=== PATIENT | male | born 1960 | race Caucasian/White ===

== ENCOUNTER 2019-03-17 16:01 | Inpatient (IN) | payer OTHER ==
[~2019-03-17] VITALS: Ht 175.3 cm; Wt 107.0 kg
[~2019-03-17 16:01] MED LIST: ACET500C5 PO; AMLO5TAB4 PO; ATOR20TA38 PO; CALC30CA PO; DOCU-144 PO; DOCU-159 PO; FENO134C PO; FURO40TA4 PO; HYDR-3601 PO; LANT3I SC; LEVO500T48 PO; LOSA25TA2 GTB; METO-448 PO; MINO10TA16 PO; MINO2.5T16 PO; MTF1000T PO; NEPH PO; NOVO3I SC; OMEP20CA16 PO; SITA50TA2 PO
[2019-03-17] MEDS ORDERED: VANCOMYCIN 1 GM (PMX) 250 ML IVPB STA (17:16)
[2019-03-17] MEDS ORDERED: PIPER-TAZO 3.375 GM IV (PMX) 100 ML IVPB STA (17:16)
--- NOTE | 2019-03-17 19:34 | ERD ---
ER Documentation Chief Complaint Chief Complaint SEND BY PMD FOR ADMISSION, HAS RIGHT FOOT INFECTION HPI This is a very pleasant 59-year-old male with a history of hypertension and insulin-dependent diabetes mellitus. The patient indicates that roughly 1 week ago he developed a redness and ulcer on the right foot. He was seen 4 days ago the vascular surgeon Dr. Fisher. He was seen today for reevaluation and Dr. Sim's office and was sent to the emergency department to be admitted for further antibiotics as his wound ulcer had worsened and appeared more red swollen and tender to the patient. He has had no fevers or shaking no chills. He denies any chest pain. He has no shortness of breath at rest or exertion. ROS All systems reviewed and are negative except as per history of present illness. Medications Home Meds Reported Medications Multivit/Ca Carb/B Cmplx/Fa* (Christi-Sherman*) 1 Tab Tab, 1 TAB PO DAILY, TAB 03/17/19 Furosemide* (Furosemide*) 40 Mg Tablet, 40 MG PO DAILY, TAB 03/17/19 Atorvastatin Calcium* (Atorvastatin Calcium*) 20 Mg Tablet, 20 MG PO QHS, #30 TAB 03/17/19 Amlodipine Besylate* (Norvasc*) 5 Mg Tablet, 5 MG PO DAILY, TAB 03/17/19 Minoxidil* (Lonitin*) 10 Mg Tab, 10 MG PO DAILY, TAB 03/17/19 Docusate Sodium* (Colace*) 100 Mg Capsule, 200 MG PO DAILY, #30 CAP 03/17/19 Omeprazole* (Omeprazole*) 20 Mg Capsule.dr, 20 MG PO DAILY, #30 CAP 03/17/19 Sitagliptin* (Januvia*) 50 Mg Tablet, 50 MG PO DAILY, #30 TAB 03/17/19 Insulin Glargine* (Lantus*) 100 Unit/Ml Soln, 40 UNIT SC BID, #1 VIAL 03/17/19 Insulin Aspart* (Novolog Insulin Pen*) 100 Unit/Ml Soln, 0 SC .SLIDING SCALE AC, EA 03/17/19 Calcifediol (Rayaldee) 30 Mcg Cap.sa.24h, 30 MCG PO DAILY 03/17/19 Levofloxacin* (Levaquin*) 500 Mg Tablet, 500 MG PO DAILY, TAB FOR 10 DAYS, START DATE 03/14/19 03/17/19 Discontinued Reported Medications Minoxidil* (Lonitin*) 2.5 Mg Tab, 5 MG PO QPM, TAB 12/30/14 Docusate Sodium* (Docusate Sodium*) 100 Mg Capsule, 100 MG PO QAM, CAP 12/30/14 Fenofibrate, Micronized (Fenofibrate) 134 Mg Capsule, 134 MG PO DAILY, CAP 12/30/14 Omeprazole* (Omeprazole*) 20 Mg Capsule.dr, 20 MG PO DAILY, CAP 12/30/14 Metformin* (Glucophage*) 1,000 Mg Tablet, 1000 MG PO BID, TAB 12/30/14 Discontinued Scripts Insulin Glargine* (Lantus*) 100 Unit/Ml Soln, 20 UNIT SC QHS for 28 Days, VIAL Prov:KATH SILVA MD 01/18/15 Losartan Potassium* (Cozaar*) 25 Mg Tab, 25 MG GTB DAILY for 28 Days, BOTTLE Prov:KATH SILVA MD 01/18/15 Metoprolol Tartrate* (Lopressor*) 25 Mg Tab, 50 MG PO BID for 28 Days, TAB Prov:KATH SILVA MD 01/18/15 Insulin Aspart* (Novolog Insulin Pen*) 100 Unit/Ml Soln, 8 UNIT SC WITH MEALS for 28 Days, VIAL Prov:KATH SILVA MD 01/18/15 Atorvastatin Calcium* (Atorvastatin Calcium*) 20 Mg Tablet, 20 MG PO HS, #60 TAB Prov:VICTOR MANUEL ODONNELL MD 01/01/15 Allergies Allergies: Coded Allergies: No Known Allergies (Verified Allergy, Mild, 03/17/19) PMhx/Soc History of Surgery: Yes (exp. lap., colostomy) Anesthesia Reaction: No Hx Neurological Disorder: No Hx Respiratory Disorders: No Hx Cardiac Disorders: Yes (HTN) Hx Psychiatric Problems: No Hx Miscellaneous Medical Probl: Yes (DM, HTN, PAD acute RF, CKD, diab neuropathy, gangrene, diverticulitis) Hx Alcohol Use: No Hx Substance Use: No Hx Tobacco Use: No Smoking Status: Never smoker Physical Exam Vitals Vital Signs Date Temp Pulse Resp B/P (MAP) Pulse Ox O2 O2 Flow FiO2 Time Delivery Rate 03/17/19 105 23 165/74 99 Room Air 19:00 (104) 03/17/19 99.8 100 18 151/79 99 16:07 (103) Physical Exam Constitutional:Well-developed. Well-nourished. HEENT:Normocephalic. Atraumatic.Pupils were equal round reactive to light. Moist mucous membranes. Respiratory: Not using accessory muscles of respiration.Lungs were clear to auscultation bilaterally. No rhonchi. No rales. No wheezing. Cardiovascular: Regular rate regular rhythm.No murmurs. No rubs were appreciated.S1, S2 normal. Dorsalis pedis and posterior tibialis were diminished on the right compared to the left. GI: Abdomen was soft. Nontender. Non Distended. No pulsatile abdominal masses or bruits. No rebound. No guarding. Bowel sounds were present and normal. Muscle skeletal: Full range of motion of both the upper and lower extremities bilaterally.Normal muscle tone.No assymetrical calf tenderness or swelling. Skin: Erythremia warmth and tenderness extending over the dorsal aspect of the right foot with central area of stage I ulcer roughly 1 cm in diameter. No fluctuance or induration. No subcutaneous emphysema. Pain not out of proportion to physical exam findings. NEURO: Patient was alert, awake, orientated x3.No facial droop. Gait observed and normal with no ataxia.Speech had regular rate and rhythm. No focal neurologi angel deficits. Result Diagram: 03/17/19174803/17/191748 Results 24 hrs Laboratory Tests Test 03/17/19 17:49 White Blood Count 9.5 10^3/ul Red Blood Count 3.48 10^6/ul Hemoglobin 10.6 g/dl Hematocrit 32.1 % Mean Corpuscular Volume 92.2 fl Mean Corpuscular Hemoglobin 30.5 pg Mean Corpuscular Hemoglobin Concent 33.0 g/dl Red Cell Distribution Width 14.5 % Platelet Count 259 10^3/UL Mean Platelet Volume 9.8 fl Immature Granulocytes % 2.400 % Neutrophils % 67.6 % Lymphocytes % 12.7 % Monocytes % 15.1 % Eosinophils % 1.9 % Basophils % 0.3 % Nucleated Red Blood Cells % 0.0 /100WBC Immature Granulocytes # 0.230 10^3/ul Neutrophils # 6.4 10^3/ul Lymphocytes # 1.2 10^3/ul Monocytes # 1.4 10^3/ul Eosinophils # 0.2 10^3/ul Basophils # 0.0 10^3/ul Nucleated Red Blood Cells # 0.0 10^3/ul Prothrombin Time 12.7 Sec Prothrombin Time Ratio 1.0 INR International Normalized Ratio 0.94 Activated Partial Thromboplast Time 30.9 Sec Sodium Level 138 mmol/L Potassium Level 4.9 mmol/L Chloride Level 99 mmol/L Carbon Dioxide Level 22 mmol/L Anion Gap 17 Blood Urea Nitrogen 58 mg/dl Creatinine 7.48 mg/dl Est Glomerular Filtrat Rate mL/min 7 mL/min Glucose Level 229 mg/dl Calcium Level 9.8 mg/dl Total Bilirubin 0.2 mg/dl Direct Bilirubin 0.00 mg/dl Indirect Bilirubin 0.2 mg/dl Aspartate Amino Transf (AST/SGOT) 37 IU/L Alanine Aminotransferase (ALT/SGPT) 57 IU/L Alkaline Phosphatase 127 IU/L Total Protein 8.6 g/dl Albumin 4.6 g/dl Globulin 4.00 g/dl Albumin/Globulin Ratio 1.15 Current Medications Medications Dose Sig/Luis F Start Time Status Last (Trade) Ordered Route PRN Stop Time Admin Dose Reason Admin Vancomycin 250 ml @ ONCE STAT 03/17/19 DC HCl 125 mls/hr IVPB 17:16 03/17/19 19:15 Piperacillin 100 ml @ ONCE STAT 03/17/19 DC 03/17/19 Sod/ 200 mls/hr IVPB 17:16 03/17/19 18:14 Tazobactam 17:45 Sod Procedures/MDM The patient presented to the emergency department with a spreading erythematous superficial infection of the skin and subcutaneous tissues. My differential diagnosis included but was not limited to necrotizing fasciitis, lymphangitis, thrombophlebitis, deep vein thrombosis, allergic reaction, neoplasm, gout or abscess. Predisposing factors of the progressive spread of erythema, warmth, pain and tenderness was considered such as lymphedema, tinea pedis, open wounds, prior trauma or surgery, pre-existing skin lesion (furuncle), retained foreign body, injection drug use or vascular or immune compromise. The patient was placed on antibiotics to cover Staphylococcus aureus, including resistant strains such as community-acquired methicillin-resistant S. aureus. The patient was given intravenous cefepime and vancomycin. There is no physical exam findings to suggest necrotizing fasciitis, compartment syndrome my clinical suspicion was low for ostium mellitus. Radiographic imaging was obtained of the right foot. There is no secondary changes at this time to suggest osteo- mellitus. 12 Lead EKG tracing ordered and reviewed by myself showed: Normal sinus rhythm of 94 bpm and no arrhythmia. AK interval normal. QRS duration normal. No ST segment elevation No ST segment depression. No changes consistent with acute ischemia. The patient had acute on chronic renal failure. His BUN was 58 and creatinine was 7.48. The patient was hyperglycemic without ketosis. He received IV fluids. He was given intravenous morphine and Zofran for analgesia control. He will be admitted under the care of Dr. Silva. I do feel the patient was able to go to the medical surgical floor. Departure Diagnosis: Primary Impression: Diabetic foot ulcer Diabetic foot ulcer location: midfoot Diabetes mellitus type: other specified (including ALVARADO) Laterality: right Non-pressure ulcer stage: limited to breakdown of skin Qualified Codes: E13.621 - Other specified diabetes mellitus with foot ulcer; L97.411 - Non-pressure chronic ulcer of right heel and midfoot limited to breakdown of skin Additional Impressions: Renal failure (ARF), acute on chronic Acute renal failure type: unspecified Chronic kidney disease stage: unspecified stage Qualified Codes: N17.9 - Acute kidney failure, unspecified; N18.9 - Chronic kidney disease, unspecified Hyperglycemia without ketosis Condition: Serious JOSÉ MIGUEL NARVAEZ MD Mar 17, 2019 19:34
[2019-03-17] MEDS ORDERED: ACETAMINOPHEN 325 MG TAB PO PRN (20:00)
[2019-03-17] MEDS ORDERED: ONDANSETRON 4 MG INJ IV PRN (20:00)
[2019-03-17 23:50] VITALS: BP 143/63; PULSE 100; RESP 18
[2019-03-18] VITALS (14 sets, daily range): BP systolic 110–147; BP diastolic 52–66; PULSE 93–108; RESP 16–18; Ht 175.3 cm; Wt 107.0 kg
[2019-03-18] MEDS ORDERED: ACETAMINOPHEN 325 MG TAB PO PRN (00:30)
[2019-03-18] MEDS: ZOLPIDEM 5 MG TAB PO PRN (01:17)
[2019-03-18] MEDS: CEFTRIAXONE 1 GM/50 ML (PMX) 50 ML IVPB SCH (01:17)
[2019-03-18] MEDS ORDERED: ACCU-CHEK XX SCH (02:00)
[2019-03-18] MEDS: INSULIN GLARGINE [LANTus] (100 UNITS/ML) SYG SC SCH ×2 (08:05→20:30)
[2019-03-18] MEDS: INSULIN ASPART [NOVOLOG] 3 ML PEN SC SCH ×5 (08:05→20:31)
[2019-03-18] MEDS: MINOXIDIL 10 MG TAB PO SCH (08:48)
[2019-03-18] MEDS: MULTIVIT/CA CARB/B CMPLX/FA TAB PO SCH (08:49)
[2019-03-18] MEDS: AMLODIPINE 5 MG TAB PO SCH (08:49)
[2019-03-18] MEDS: FUROSEMIDE 40 MG TAB PO SCH (08:49)
[2019-03-18] MEDS: DOCUSATE SODIUM 100 MG CAP PO SCH (08:50)
[2019-03-18] MEDS: TIMOLOL 0.5% 5 ML OPH BOTH EYES SCH ×2 (08:50→20:28)
[2019-03-18] MEDS ORDERED: SPECIAL NON-STANDARD MEDICATION BOTH EYES SCH (09:00)
[2019-03-18] MEDS ORDERED: ENOXAPARIN 40 MG/0.4 ML SYG SC SCH (09:00)
[2019-03-18] MEDS ORDERED: GLUCAGON 1 MG INJ IM PRN (11:30)
[2019-03-18] MEDS ORDERED: DEXTROSE 50% 50 ML SYRINGE IV PRN ×2 (11:30)
[2019-03-18] MEDS ORDERED: GLUCOSE GEL 15 GRAM TUBE PO PRN ×2 (11:30)
[2019-03-18] MEDS ORDERED: GLUCOSE GEL 15 GRAM TUBE BUCCAL PRN (11:30)
--- NOTE | 2019-03-18 12:43 | PN ---
Date/Time of Note Date/Time of Note DATE: 03/18/19 TIME: 12:41 Assessment/Plan Lines/Catheters IV Catheter Type (from Nrsg): Saline Lock Assessment/Plan Assessment/Plan R foot cellulitis, small wound improving with antibiotics I asked Dr. Ha to see him for podiatric evaluation Subjective 24 Hr Interval Summary No c/o. R foot pain has mostly resolved. Exam/Review of Systems Vital Signs Vitals Vital Signs Date Temp Pulse Resp B/P (MAP) Pulse Ox O2 O2 Flow FiO2 Time Delivery Rate 03/18/19 98.3 104 18 120/56 93 Room Air 07:15 (77) Intake and Output 03/17/19 03/17/19 03/18/19 1515:00 23:00 07:00 IntakeIntake Total 290 ml OutputOutput Total 300 ml BalanceBalance -10 ml Exam Free Text/Dictation R dorsal foot erythema is less red, no longer blanching, non tender, no drainage, dry eschar Results Result Diagram: 03/18/19 0523 03/18/19 0523 DAGOBERTO AGUILAR MD Mar 18, 2019 12:43
--- NOTE | 2019-03-18 13:57 | HP ---
DRISS CASTELLANOS NP 03/18/19 1357: Date/Time of Note Date/Time of Note DATE: 03/18/19 TIME: 13:57 Assessment/Plan VTE Prophylaxis Pharmacological prophylaxis: LMWH Lines/Catheters IV Catheter Type (from Nrs): Saline Lock Assessment/Plan Hospital Course 1. right foot cellulitis with necrotic wound, pt has redness and edema only for 5 days. Suspected PAD. 2. Hypertension, 3. Obesity, 4. Diabetes mellitus type II , BS is uncontrolled 5. ESRD on HD services, MWF 6. Anemia chronic disease 7. Hyperkalemia 8. S/p abd. laparotomy,hx of diverticulosis 9. s/p left foot 3 toe amputation, 10. s.p bilateral lenses replacement, 11. s/p left arm AV fistula creation Assessment/Plan -wound care -insulin aspart with meals 5 units -podiatry -Dr Fisher vascular surgeon -DVT proph lovenox -GI proph protonix -phos level -HD today -hypoglycemic control -start Tradjenta -ID consult Result Diagram: 03/18/19 0523 03/18/19 0523 Results 24hrs Laboratory Tests Test 03/17/19 17:49 03/17/19 19:55 03/17/19 23:58 03/18/19 05:20 White Blood Count 9.5 Red Blood Count 3.48 L Hemoglobin 10.6 L Hematocrit 32.1 L Mean Corpuscular Volume 92.2 Mean Corpuscular 30.5 Hemoglobin Mean Corpuscular 33.0 Hemoglobin Concent Red Cell Distribution 14.5 Width Platelet Count 259 Mean Platelet Volume 9.8 Immature Granulocytes % 2.400 H Neutrophils % 67.6 Lymphocytes % 12.7 L Monocytes % 15.1 H Eosinophils % 1.9 Basophils % 0.3 Nucleated Red Blood 0.0 Cells % Immature Granulocytes # 0.230 H Neutrophils # 6.4 Lymphocytes # 1.2 Monocytes # 1.4 H Eosinophils # 0.2 Basophils # 0.0 Nucleated Red Blood 0.0 Cells # Prothrombin Time 12.7 Prothrombin Time Ratio 1.0 INR International 0.94 Normalized Ratio Activated 30.9 Partial Thromboplast Time Sodium Level 138 Potassium Level 4.9 Chloride Level 99 Carbon Dioxide Level 22 Anion Gap 17 H Blood Urea Nitrogen 58 H Creatinine 7.48 H Est Glomerular Filtrat 7 L Rate mL/min Glucose Level 229 H Calcium Level 9.8 Total Bilirubin 0.2 Direct Bilirubin 0.00 Indirect Bilirubin 0.2 Aspartate Amino 37 Transf (AST/SGOT) Alanine 57 Aminotransferase (ALT/SG PT) Alkaline Phosphatase 127 H Total Protein 8.6 H Albumin 4.6 Globulin 4.00 H Albumin/Globulin Ratio 1.15 Urine Color YELLOW Urine Clarity CLOUDY A Urine pH 5.0 Urine Specific Simla 1.016 Urine Ketones NEGATIVE Urine Nitrite NEGATIVE Urine Bilirubin NEGATIVE Urine Urobilinogen NEGATIVE Urine Leukocyte Esterase NEGATIVE Urine Microscopic RBC 15 H Urine Microscopic WBC 6 H Urine Squamous FEW Epithelial Cells Urine Amorphous Crystals MODERATE Urine Bacteria FEW A Urine Hemoglobin 1+ H Urine Glucose 1+ H Urine Total Protein 2+ H Bedside Glucose 154 Hepatitis B Surface NEGATIVE Antigen Test 03/18/19 05:23 03/18/19 08:00 03/18/19 12:10 White Blood Count 8.3 Red Blood Count 3.13 L Hemoglobin 9.7 L Hematocrit 29.2 L Mean Corpuscular Volume 93.3 Mean Corpuscular 31.0 Hemoglobin Mean Corpuscular 33.2 Hemoglobin Concent Red Cell Distribution 14.4 Width Platelet Count 226 Mean Platelet Volume 9.4 Immature Granulocytes % 2.200 H Neutrophils % 83.7 H Lymphocytes % 3.6 L Monocytes % 9.0 Eosinophils % 1.3 Basophils % 0.2 Nucleated Red Blood 0.0 Cells % Immature Granulocytes # 0.180 H Neutrophils # 6.9 Lymphocytes # 0.3 L Monocytes # 0.7 Eosinophils # 0.1 Basophils # 0.0 Nucleated Red Blood 0.0 Cells # Sodium Level 139 Potassium Level 5.4 H Chloride Level 101 Carbon Dioxide Level 22 Anion Gap 16 H Blood Urea Nitrogen 67 H Creatinine 8.20 H Est Glomerular Filtrat 7 L Rate mL/min Glucose Level 281 H Calcium Level 9.0 Bedside Glucose 274 H 218 HPI/ROS Admit Date/Time Admit Date/Time Mar 17, 2019 at 19:35 Hx of Present Illness This is 59-year-old male with a history of hypertension, obesity, diabetes mellitus type II and fresh with HD services three times per week was sent from [facility] office for the evaluation of the right foot edema. The patient indicates that roughly 1 week ago he developed a redness and ulcer on the right foot. He was seen by vascular surgeon Dr. Fisher. denied fevers, shaking no chills. He denies any chest pain. He has no shortness of breath at rest or exertion. ROS Constitutional: No fever, cough or chills. EYE: cataract surgery CARDIOVASCULAR: No chest pain. No tachycardia. No Palpitation. RESPIRATORY: No breathing problems. No COPD or disease of respiration. GASTROINTESTINAL: No Nausea. No Vomiting. No constipation.has diverticulosis Endocrine: has DM MUSCULO-SKELETAL: previous left foot surgeries, feet are called NEUROLOGICAL: Alert oriented in person, place, time and situation. No Headache, Confusion. No Seizures. No problem with balance. PMH/Family/Social Past Medical History Medications Current Medications Diagnostic Test (Pha) (Accu-Chek) XX ; Start 03/18/19 at 02:00 Insulin Aspart (Novolog Insulin Pen) NOVOLOG *MODERATE* ALGORITHM WITH MEALS BEDTIME SC Last administered on 03/18/19 12:19; Admin Dose 4 UNIT; Start 03/18/19 at 08:00 Ceftriaxone Sodium 50 ml @ 100 mls/hr Q24H IVPB Last administered on 03/18/19 01:17; Admin Dose 100 MLS/HR; Start 03/18/19 at 00:30 Acetaminophen (Tylenol Tab) 650 mg Q6H PRN PO MILD PAIN(1-3)OR ELEVATED TEMP; Start 03/18/19 at 00:30 Zolpidem Tartrate (Ambien) 5 mg HS PRN PO INSOMNIA Last administered on 03/18/19 01:17; Admin Dose 5 MG; Start 03/18/19 at 00:30 Enoxaparin Sodium (Lovenox) 40 mg DAILY SC Last administered on 03/18/19 08:53; Admin Dose 40 MG; Start 03/18/19 at 09:00 Timolol Maleate (Timoptic 0.5%) 1 drop BID BOTH EYES Last administered on 03/18/19 08:50; Admin Dose 1 DROP; Start 03/18/19 at 09:00 Amlodipine Besylate (Norvasc) 5 mg DAILY PO Last administered on 03/18/19 08:49; Admin Dose 5 MG; Start 03/18/19 at 09:00 Atorvastatin Calcium (Lipitor) 20 mg QHS PO ; Start 03/18/19 at 21:00 Docusate Sodium (Colace) 200 mg DAILY PO Last administered on 03/18/19 08:50; Admin Dose 200 MG; Start 03/18/19 at 09:00 Furosemide (Lasix) 40 mg DAILY PO Last administered on 03/18/19at 08:49; Admin Dose 40 MG; Start 03/18/19 at 09:00 Insulin Glargine (Lantus) 40 units BID SC Last administered on 03/18/19at 08:05; Admin Dose 40 UNITS; Start 03/18/19 at 09:00 Minoxidil (Loniten) 10 mg DAILY PO Last administered on 03/18/19at 08:48; Admin Dose 10 MG; Start 03/18/19 at 09:00 Multivit/Ca Carb/ B Cmplx/FA/Prenat (Christi-Sherman) 1 tab DAILY PO Last administered on 03/18/19at 08:49; Admin Dose 1 TAB; Start 03/18/19 at 09:00 Non-Formulary Medication 1 ea BID BOTH EYES ; Start 03/18/19 at 09:00; Status UNV Collagenase (Santyl) 1 applic DAILY TOP ; Start 03/18/19 at 11:30 Miscellaneous Information 1 ea NOTE XX ; Start 03/18/19 at 11:30 Glucose (Glutose) 15 gm Q15M PRN PO DECREASED GLUCOSE; Start 03/18/19 at 11:30 Glucose (Glutose) 22.5 gm Q15M PRN PO DECREASED GLUCOSE; Start 03/18/19 at 11:30 Dextrose (D50w Syringe) 25 ml Q15M PRN IV DECREASED GLUCOSE; Start 03/18/19 at 11:30 Dextrose (D50w Syringe) 50 ml Q15M PRN IV DECREASED GLUCOSE; Start 03/18/19 at 11:30 Glucagon (Glucagen) 1 mg Q15M PRN IM DECREASED GLUCOSE; Start 03/18/19 at 11:30 Glucose (Glutose) 15 gm Q15M PRN BUCCAL DECREASED GLUCOSE; Start 03/18/19 at 11:30 Coded Allergies: No Known Allergies (Verified Allergy, Mild, 03/17/19) Past Surgical History Past Surgical Hx: other (abd. laparotomy, s/p left foot 3 toe amputation, s.p bilateral lenses replacement, s/p left arm AV fistula) Social History Smoking Status: Never smoker Exam/Review of Systems Vital Signs Vitals Vital Signs Date Temp Pulse Resp B/P (MAP) Pulse Ox O2 O2 Flow FiO2 Time Delivery Rate 03/18/19 98.3 104 18 120/56 93 Room Air 07:15 (77) Intake and Output 03/17/19 03/17/19 03/18/19 1515:00 23:00 07:00 IntakeIntake Total 290 ml OutputOutput Total 300 ml BalanceBalance -10 ml Exam Exam No acute distress, no events. Eyes: anicteric, EOM's intact, no pallor, seen lens translucency bilateral Nose: no rhinorrhea Neck: supple, no thyromegaly, no carotid bruits Lungs: clear bilaterally, decreased. CVS: regular rate and rhythm, no murmurs Abdomen: soft, bowel sounds present, no hepatosplenomegally, no masses, no rebound or guarding.obese Rectal: differed. External genitalia: no lesions. Extremities: no edema, DP pulses are not palpable bilaterally, right foot re dness and necrotic tissue, deformity 3 toe, left foot s/p amp, some dry blood Neuro: alert and oriented x 3 Gait: normal Motor strength: 5+/5+ Sensory exam: normal Deep tendon reflexes: normal, Babisky reflexes are absent bilaterally Skin: necrotic changes right foot DEONNA TILLMAN MD 03/18/19 1527: Assessment/Plan Assessment/Plan Assessment/Plan MELODY AND EXAMINED WITH ADJUNCT BUSINESS IN[employer] ESRD HD TODAY PODIATRY CONSULT IV ABX MRI Result Diagram: 03/18/19 0523 03/18/19 0523 PMH/Family/Social Past Medical History Coded Allergies: No Known Allergies (Verified Allergy, Mild, 03/17/19) DRISS CASTELLANOS NP Mar 18, 2019 13:57 DEONNA TILLMAN MD Mar 18, 2019 15:27
[2019-03-18] MEDS ORDERED: VANCOMYCIN IV PER PHARMACY XX SCH (15:30)
[2019-03-18] MEDS ORDERED: VANCOMYCIN 1 GM 250 ML IVPB SCH (16:00)
--- NOTE | 2019-03-18 16:20 | CONS ---
DATE OF ADMISSION: 03/17/2019 DATE OF CONSULTATION: 03/18/2019 CHIEF COMPLAINT: Right foot infection. HISTORY OF PRESENT ILLNESS: This is a 59-year-old gentleman with approximately 2 weeks of swelling. He states possibly he had a bug bite. He developed a necrotic pus with surrounding cellulitis. He was admitted for further evaluation and had initial cultures positive for Staph aureus. The patient is currently awaiting dialysis. PAST MEDICAL HISTORY: Includes: 1. Diabetes type 2 with peripheral neuropathy. 2. Diabetes with nephropathy and end-stage renal disease on hemodialysis. 3. Hypertension. 4. Peripheral arterial disease. 5. History of gangrene. 6. Diverticulitis. PAST SURGICAL HISTORY: Multiple bilateral foot surgeries SOCIAL HISTORY: Denies any tobacco, alcohol use. ALLERGIES: NONE. PHYSICAL EXAMINATION: VITAL SIGNS: Temperature is 98.3, pulse is 104, respiratory rate 18, blood pressure is 120/56, pulse ox is 93 on room air. GENERAL: The patient is alert, oriented, no acute distress, regular respiration. EXTREMITIES: The patient with a right foot dorsal aspect cellulitis. There is a necrotic patch at the lateral aspect of the 1st metatarsal base. Eschar appears dry fluctuance, 1+ pulse. The DP, popliteal, 2+ femoral pulse swelling present in dorsal right foot. No signs of pressure ulceration. LABORATORIES: WBC 8.3, hemoglobin 9.7, hematocrit 29.2, platelets 226. Sodium 139, potassium 5.4, chloride 101, CO2 of 22, BUN 67, creatinine 8.2. DIAGNOSTIC DATA: Right foot x-rays with recent changes at the 5th proximal interphalangeal joint soft tissue swelling, dorsal right foot swelling, calcaneal bone spurs, postsurgical changes to 2nd proximal interphalangeal joint. ASSESSMENT: 1. Right foot dry gangrene. 2. Abscess. 3. Cellulitis, right foot. 4. Diabetes with peripheral neuropathy. 5. Chronic kidney disease on hemodialysis. PLAN: Initial cultures are pending. Prior outpatient revealed Staph aureus. The patient is currently on ceftriaxone. I recommend a surgical incision and drainage. We will schedule a mutual agreeable time tentatively tomorrow. The patient will be kept n.p.o.. I discussed the planned procedure. All questions were answered. The patient is currently scheduled for dialysis today. Dictated By: TONY MORENO/NIMA Conf#: [id number] DID#: [id number] CC: KATH SILVA MD;*EndCC* MTDD
[2019-03-18] MEDS: PANTOPRAZOLE (EC) 40 MG TAB PO SCH (16:34)
[2019-03-18] MEDS: COLLAGENASE 5 GM (UD JAR) TOP SCH (17:30)
[2019-03-18] MEDS: LINAGLIPTIN 5 MG TABLET PO SCH (17:34)
--- NOTE | 2019-03-18 20:04 | CONS ---
DATE OF ADMISSION: 03/17/2019 DATE OF CONSULTATION: 03/18/2019 INFECTIOUS DISEASE CONSULTATION REASON FOR CONSULTATION: Antibiotic management. HISTORY OF PRESENT ILLNESS: Sanjay Novak is a pleasant 59-year-old male who is admitted on 2018 with a diabetic foot ulcer and is being seen for antibiotic management. His past problems inclu de hypertension, insulin-dependent diabetes mellitus. About 1 week ago, he developed redness and ulc er on the right foot. He was seen 4 days prior to admission by Dr. Fisher, vascular surgeon. The pat ient was then sent into the emergency room on further evaluation by Dr. Vaz for antibiotic therapy h is ulcer had worsened and become more swollen and red and tender. He denies chest pain or shortness of breath at rest or exertion. PAST MEDICAL HISTORY: Essentially as outlined. PAST SURGICAL HISTORY: Had exploratory laparotomy and colostomy in the past. As noted, he has diabe suleiman, hypertension, peripheral artery disease, acute renal failure, chronic renal disease. The patien t is on dialysis Thursday, Thursday and Thursday, has an AV fistula in his left arm. He has diabetic ne uropathy and diverticulitis. PHYSICAL EXAMINATION: GENERAL: He is disheveled. VITAL SIGNS: T-max is 99.8. SKIN: He has erythema, warmth and tenderness extending over the dorsal aspect of the right foot with a central area of eschar and a stage I ulcer about 1 cm in diameter without fluctuance or induration . No skin, subcutaneous emphysema. Pain not out of proportion. HEENT: Within normal limits. NECK: Supple. LYMPH NODES: None palpable. CHEST: Decreased breath sounds at the bases. HEART: Without murmur or gallop. ABDOMEN: Soft, nontender, without organosplenomegaly or masses. EXTREMITIES: Without cyanosis, clubbing, or edema. RECTAL AND GENITAL: Deferred. NEUROLOGIC: No focal neurological abnormality. LABORATORY DATA: White count is 9.5, H and H of 10.6 and 32.1, platelet count 259,000. BUN and crea tinine 58/7.48 and glucose of 229. The patient has 68% neutrophils. IMPRESSION AND PLAN: Patient was started on vancomycin and Zosyn. The patient was seen by Dr. Adan marr in podiatric consultation. He noted right foot dry gangrene, abscess, cellulitis right foot, necr otic patch of the lateral aspect of the first metatarsal base. Eschar feels dry. No fluctuance. 2+ femoral pulse. Swelling present in the dorsal right foot. Cultures are pending. Prior outpatient cultures revealed Staphylococcus aureus. He recommended surgical incision and drainage, possibly for tomorrow. It is planned for tomorrow. He has had dialysis today. He is on vancomycin, which will last 3 or 4 days and ceftriaxone. We will continue him on current therapy. I will dictate my findin gs to the hospitalist. Dictated By: SAMANTHA SCOTT MD, JD/NIMA Conf#: [id number] DID#: [id number]
[2019-03-18] MEDS: ATORVASTATIN 20 MG TAB PO SCH (20:28)
[2019-03-19] VITALS (23 sets, daily range): BP systolic 120–147; BP diastolic 44–66; PULSE 88–99; RESP 16–19
[2019-03-19] MEDS: CEFTRIAXONE 1 GM/50 ML (PMX) 50 ML IVPB SCH (02:00)
[2019-03-19] MEDS: INSULIN ASPART [NOVOLOG] 3 ML PEN SC SCH ×6 (02:13→17:36)
[2019-03-19] MEDS: PANTOPRAZOLE (EC) 40 MG TAB PO SCH (06:00)
--- NOTE | 2019-03-19 07:25 | HPN ---
Date/Time of Note Date/Time of Note DATE: 03/19/19 TIME: 07:25 Interval H&P Admission Note Pt. seen H&P reviewed: No system changes TONY CARMONA DPM Mar 19, 2019 07:25
--- NOTE | 2019-03-19 07:26 | PREAC ---
Date/Time of Note Date/Time of Note DATE: 03/19/19 TIME: 07:24 Anesthesia Eval and Record Evaluation Time Pre-Procedure Interview DATE: 03/19/19 TIME: 07:24 Age 59 Sex male NPO: 8 hrs Preoperative diagnosis right foot cellulitis, necrosis Planned procedure right foot incision and drainage Past Medical History Past Medical History: Includes Cardio: HTN, Dyslipidemia Endo: Diabetes Renal: ESRD on dialysis Heme: Anemia Surgery & Anesthesia Issues No known issue Meds Anticoagulation: No Beta Tanya within 24 hr: No Reason Beta Tanya not given: Pt. not on B-Tanya Reported Medications Multivit/Ca Carb/B Cmplx/Fa* (Christi-Sherman*) 1 Tab Tab, 1 TAB PO DAILY, TAB 03/17/19 Furosemide* (Furosemide*) 40 Mg Tablet, 40 MG PO DAILY, TAB 03/17/19 Atorvastatin Calcium* (Atorvastatin Calcium*) 20 Mg Tablet, 20 MG PO QHS, #30 TAB 03/17/19 Amlodipine Besylate* (Norvasc*) 5 Mg Tablet, 5 MG PO DAILY, TAB 03/17/19 Minoxidil* (Lonitin*) 10 Mg Tab, 10 MG PO DAILY, TAB 03/17/19 Docusate Sodium* (Colace*) 100 Mg Capsule, 200 MG PO DAILY, #30 CAP 03/17/19 Omeprazole* (Omeprazole*) 20 Mg Capsule.dr, 20 MG PO DAILY, #30 CAP 03/17/19 Sitagliptin* (Januvia*) 50 Mg Tablet, 50 MG PO DAILY, #30 TAB 03/17/19 Insulin Glargine* (Lantus*) 100 Unit/Ml Soln, 40 UNIT SC BID, #1 VIAL 03/17/19 Insulin Aspart* (Novolog Insulin Pen*) 100 Unit/Ml Soln, 0 SC .SLIDING SCALE AC, EA 03/17/19 Calcifediol (Rayaldee) 30 Mcg Cap.sa.24h, 30 MCG PO DAILY 03/17/19 Levofloxacin* (Levaquin*) 500 Mg Tablet, 500 MG PO DAILY, TAB FOR 10 DAYS, START DATE 03/14/19 03/17/19 Discontinued Reported Medications Minoxidil* (Lonitin*) 2.5 Mg Tab, 5 MG PO QPM, TAB 12/30/14 Docusate Sodium* (Docusate Sodium*) 100 Mg Capsule, 100 MG PO QAM, CAP 12/30/14 Fenofibrate, Micronized (Fenofibrate) 134 Mg Capsule, 134 MG PO DAILY, CAP 12/30/14 Omeprazole* (Omeprazole*) 20 Mg Capsule.dr, 20 MG PO DAILY, CAP 12/30/14 Metformin* (Glucophage*) 1,000 Mg Tablet, 1000 MG PO BID, TAB 12/30/14 Discontinued Scripts Insulin Glargine* (Lantus*) 100 Unit/Ml Soln, 20 UNIT SC QHS for 28 Days, VIAL Prov:KATH SILVA MD 01/18/15 Losartan Potassium* (Cozaar*) 25 Mg Tab, 25 MG GTB DAILY for 28 Days, BOTTLE Prov:KATH SILVA MD 01/18/15 Metoprolol Tartrate* (Lopressor*) 25 Mg Tab, 50 MG PO BID for 28 Days, TAB Prov:KATH SILVA MD 01/18/15 Insulin Aspart* (Novolog Insulin Pen*) 100 Unit/Ml Soln, 8 UNIT SC WITH MEALS for 28 Days, VIAL Prov:KATH SILVA MD 01/18/15 Atorvastatin Calcium* (Atorvastatin Calcium*) 20 Mg Tablet, 20 MG PO HS, #60 TAB Prov:VICTOR MANUEL ODONNELL MD 01/01/15 Current Medications Diagnostic Test (Pha) (Accu-Chek) XX ; Start 03/18/19 at 02:00; Status Hold Insulin Aspart (Novolog Insulin Pen) NOVOLOG *MODERATE* ALGORITHM WITH MEALS BEDTIME SC Last administered on 03/18/19at 20:31; Admin Dose 3 UNIT; Start 03/18/19 at 08:00; Status Hold Ceftriaxone Sodium 50 ml @ 100 mls/hr Q24H IVPB Last administered on 03/19/19at 02:00; Admin Dose 100 MLS/HR; Start 03/18/19 at 00:30 Acetaminophen (Tylenol Tab) 650 mg Q6H PRN PO MILD PAIN(1-3)OR ELEVATED TEMP; Start 03/18/19 at 00:30 Zolpidem Tartrate (Ambien) 5 mg HS PRN PO INSOMNIA Last administered on 03/18/19at 01:17; Admin Dose 5 MG; Start 03/18/19 at 00:30 Timolol Maleate (Timoptic 0.5%) 1 drop BID BOTH EYES Last administered on 03/18/19 20:28; Admin Dose 1 DROP; Start 03/18/19 at 09:00 Amlodipine Besylate (Norvasc) 5 mg DAILY PO Last administered on 03/18/19 08:49; Admin Dose 5 MG; Start 03/18/19 at 09:00 Atorvastatin Calcium (Lipitor) 20 mg QHS PO Last administered on 03/18/19 20:28; Admin Dose 20 MG; Start 03/18/19 at 21:00 Docusate Sodium (Colace) 200 mg DAILY PO Last administered on 03/18/19 08:50; Admin Dose 200 MG; Start 03/18/19 at 09:00 Furosemide (Lasix) 40 mg DAILY PO Last administered on 03/18/19 08:49; Admin Dose 40 MG; Start 03/18/19 at 09:00 Insulin Glargine (Lantus) 40 units BID SC Last administered on 03/18/19 20:30; Admin Dose 40 UNITS; Start 03/18/19 at 09:00 Minoxidil (Loniten) 10 mg DAILY PO Last administered on 03/18/19 08:48; Admin Dose 10 MG; Start 03/18/19 at 09:00 Multivit/Ca Carb/ B Cmplx/FA/Prenat (Christi-Sherman) 1 tab DAILY PO Last administered on 03/18/19 08:49; Admin Dose 1 TAB; Start 03/18/19 at 09:00 Non-Formulary Medication 1 ea BID BOTH EYES ; Start 03/18/19 at 09:00; Status UNV Collagenase (Santyl) 1 applic DAILY TOP Last administered on 03/18/19at 17:30; Admin Dose 1 APPLIC; Start 03/18/19 at 11:30 Miscellaneous Information 1 ea NOTE XX ; Start 03/18/19 at 11:30 Glucose (Glutose) 15 gm Q15M PRN PO DECREASED GLUCOSE; Start 03/18/19 at 11:30 Glucose (Glutose) 22.5 gm Q15M PRN PO DECREASED GLUCOSE; Start 03/18/19 at 11:30 Dextrose (D50w Syringe) 25 ml Q15M PRN IV DECREASED GLUCOSE; Start 03/18/19 at 11:30 Dextrose (D50w Syringe) 50 ml Q15M PRN IV DECREASED GLUCOSE; Start 03/18/19 at 11:30 Glucagon (Glucagen) 1 mg Q15M PRN IM DECREASED GLUCOSE; Start 03/18/19 at 11:30 Glucose (Glutose) 15 gm Q15M PRN BUCCAL DECREASED GLUCOSE; Start 03/18/19 at 11:30 Pantoprazole (Protonix Tab) 40 mg DAILY@06 PO Last administered on 03/18/19at 16:34; Admin Dose 40 MG; Start 03/18/19 at 16:00 Linagliptin (Tradjenta) 5 mg DAILY PO Last administered on 03/18/19at 17:34; Admin Dose 5 MG; Start 03/18/19 at 15:00 Insulin Aspart (Novolog Insulin Pen) 5 unit WITH MEALS SC Last administered on 03/18/19at 17:38; Admin Dose 5 UNIT; Start 03/18/19 at 17:35 Enoxaparin Sodium (Lovenox) 30 mg DAILY SC ; Start 03/19/19 at 09:00 Vancomycin HCl (Vanco Iv Per Pharmacy) VANCOMYCIN PER PHARMACY PER PROTOCOL XX ; Start 03/18/19 at 15:30 Povidone Iodine (Povidone-Iodine) 1 applic DAILY TOP ; Start 03/19/19 at 09:00 Insulin Aspart (Novolog Insulin Pen) NOVOLOG *MODERATE* ALGORI... Q4 SC Last administered on 03/19/19at 06:27; Admin Dose 4 UNIT; Start 03/19/19 at 05:00 Meds reviewed: Yes Allergies Coded Allergies: No Known Allergies (Verified Allergy, Mild, 03/17/19) Allergies Reviewed: Yes Labs/Studies Labs Reviewed: Reviewed by anesthesiologist Result Diagram: 03/19/19 0613 03/19/19 0612 Laboratory Tests 03/19/19 06:12 03/19/19 06:13 test: N/A Pre-procedure Exam Last vitals Vital Signs Date Temp Pulse Resp B/P (MAP) Pulse Ox O2 O2 Flow FiO2 Time Delivery Rate 03/19/19 97 01:00 03/18/19 17 125/58 Room Air 22:57 (80) 03/18/19 98.5 94 20:30 Airway: Adequate mouth opening, Adequate thyromental dist Mallampati: Mallampati II Teeth: Normal Lung: Normal Heart: Normal ASA Physical Status ASA physical status: 3 Emergency: None Planned Anesthetic General/MAC: Mask Planned Pain Management Parenteral pain med, Local by surgeon Pre-operative Attestations Prior to commencing anesthesia and surgery, the patient was re-evaluated, there was verification of: *The patient's identity *The results of appropriate recent lab work and preoperative vital signs *The above evaluation not changing prior to induction *Anesthetic plan, risk benefits, alternative and complications discussed with patient/family; questions answered; patient/family understands, accepts and wishes to proceed. ABHILASH JAY MD Mar 19, 2019 07:26
[2019-03-19] MEDS ORDERED: POLYMYXIN/BACITRACIN 1L IRRIG ONE (07:36)
[2019-03-19] MEDS ORDERED: LIDOCAINE 2% (SDV) 5 ML INJ ONE (07:38)
[2019-03-19] MEDS ORDERED: FENTAnyl 50 MCG/ML VIAL ONE (07:38)
[2019-03-19] MEDS ORDERED: PROPOFOL 20 ML ONE (07:38)
[2019-03-19] MEDS ORDERED: MIDAZOLAM 1 MG/ML 2 ML INJ ONE (07:38)
[2019-03-19] MEDS ORDERED: BUPIVACAINE 0.5% (SDV) 30 ML INJ ONE (07:47)
[2019-03-19] MEDS ORDERED: CEFAZOLIN 1 GM INJ ONE (07:52)
[2019-03-19] MEDS ORDERED: ONDANSETRON 4 MG INJ ONE (07:54)
[2019-03-19] MEDS ORDERED: FAMOTIDINE 20 MG INJ ONE (07:54)
[2019-03-19] MEDS ORDERED: MEPERIDINE 25 MG INJ IV PRN (08:00)
[2019-03-19] MEDS ORDERED: PROCHLORPERAZINE 10 MG INJ IV PRN (08:00)
[2019-03-19] MEDS ORDERED: LABETALOL HCL 20MG INJ IV PRN (08:00)
[2019-03-19] MEDS ORDERED: hydrALAzine 20 MG INJ IV PRN (08:00)
[2019-03-19] MEDS ORDERED: FENTAnyl 50 MCG/ML VIAL IV PRN (08:00)
[2019-03-19] MEDS ORDERED: ONDANSETRON 4 MG INJ IV PRN (08:00)
[2019-03-19] MEDS ORDERED: HYDROmorphONE 1 MG/5 ML IV SYRINGE IV PRN ×3 (08:00)
[2019-03-19] MEDS ORDERED: DIPHENHYDRAMINE 50 MG INJ IV PRN (08:00)
--- NOTE | 2019-03-19 08:23 | PAC ---
Date/Time of Note Date/Time of Note DATE: 03/19/19 TIME: 08:22 Post-Anesthesia Notes Post-Anesthesia Note Last documented vital signs Vital Signs Date Temp Pulse Resp B/P (MAP) Pulse Ox O2 O2 Flow FiO2 Time Delivery Rate 03/19/19 97 01:00 03/18/19 17 125/58 Room Air 22:57 (80) 03/18/19 98.5 94 20:30 Activity: WNL Respiratory function: WNL Cardiovascular function: WNL Mental status: Baseline Pain reasonably controlled: Yes Hydration appropriate: Yes Nausea/Vomiting absent: Yes Comments BP: 140/63 HR: 93 RR: 15 T: 98 SaO2: 96% ABHILASH CARRINGTON MD Mar 19, 2019 08:23
--- NOTE | 2019-03-19 08:23 | SIPON ---
Date/Time of Note Date/Time of Note DATE: 03/19/19 TIME: 08:20 Operative Report Preoperative Diagnosis Right foot abscess Right foot cellulitis DM2 with PN h/o right partial 3rd toe amputation Postoperative Diagnosis same Operation/Procedure Performed Right foot incision and drainage Surgeon see signature line assistant director of public works Chana De Leon DPM Anesthesia: general Estimated blood loss: 0 - 10 ml's Transfusion Required none Specimen wound culture Grafts/Implants none Complications none TONY CARMONA DPM Mar 19, 2019 08:23
[2019-03-19] MEDS: POVIDONE IODINE 10% 28.4 GM OINT TOP SCH (09:00)
[2019-03-19] MEDS ORDERED: ENOXAPARIN 30 MG/0.3 ML SYG SC SCH (09:00)
[2019-03-19] MEDS: COLLAGENASE 5 GM (UD JAR) TOP SCH (09:00)
--- NOTE | 2019-03-19 11:42 | OPR ---
DATE OF OPERATION: 03/19/2019 SURGEON: Tony Ha DPM FISHER LOBSTER: Sakshi Stout DPM PREOPERATIVE DIAGNOSES: 1. Right foot abscess. 2. Right foot cellulitis. 3. Gangrene. 4. 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 5. History of partial right third toe amputation. POSTOPERATIVE DIAGNOSES: 1. Right foot abscess. 2. Right foot cellulitis. 3. Gangrene. 4. 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 5. History of partial right third toe amputation. PROCEDURE: Incision and drainage, right foot below fascia with pulse irrigation, excisional debridem ent of ulceration and necrotic skin and subcutaneous tissue of less than 20 cm2. PATHOLOGY: Wound cultures. ANESTHESIA: General. ESTIMATED BLOOD LOSS: 10 mL. COMPLICATIONS: None. INDICATION FOR PROCEDURE: A 59-year-old gentleman with possible insect bite, has developed a patch o f skin necrosis. Question for underlying abscess. The patient with thick intense inflammatory jeffrey es to dorsal aspect of the foot, consistent with cellulitis. The patient is at risk for further tiss ue necrosis. Discussed planned procedure. Informed consent was obtained. The foot was properly mar ked, confirmed by the surgical team. All his questions were answered to his satisfaction. PROCEDURE IN DETAIL: The patient brought into the operating room and placed in the supine position. Formal timeout performed. The foot was prepped with Betadine, scrubbed and painted, draped in usual sterile fashion. At this time, the gangrenous patch was debrided excisionally. There is necrotic s kin and subcutaneous tissue. Ulceration measured 1 x 0.5 cm adjacent to the ulceration and incision was made approximately 4 to 5 mL of purulence was drained. There is necrotic subcutaneous tissue, wh ich was also excised. The patient had an exposed DP artery which felt calcified. The artery appeare d intact. The ulceration was irrigated with saline with bulb syringe. At this time, multiple suture s were applied with long tags to allow for closure. During subsequent postoperative visits wound was left open, patient had EBL of 10 mL. Hemostasis achieved with pressure. The dressings included Xer oform, 4 x 4 gauze, Kerlix and bias. The patient tolerated the procedure well. Dictated By: TONY MORENO/NIMA Conf#: [id number] [facility]#: [id number] CC: SAKSHI STOUT DPM;*EndCC*
[2019-03-19] MEDS: MULTIVIT/CA CARB/B CMPLX/FA TAB PO SCH (12:52)
[2019-03-19] MEDS: MINOXIDIL 10 MG TAB PO SCH (12:53)
[2019-03-19] MEDS: TIMOLOL 0.5% 5 ML OPH BOTH EYES SCH ×2 (12:53→20:44)
[2019-03-19] MEDS: LINAGLIPTIN 5 MG TABLET PO SCH (12:53)
[2019-03-19] MEDS: DOCUSATE SODIUM 100 MG CAP PO SCH (12:55)
[2019-03-19] MEDS: FUROSEMIDE 40 MG TAB PO SCH (12:56)
[2019-03-19] MEDS: AMLODIPINE 5 MG TAB PO SCH (12:56)
--- NOTE | 2019-03-19 14:45 | PN ---
Date/Time of Note Date/Time of Note DATE: 03/19/19 TIME: 14:41 Assessment/Plan VTE Prophylaxis Risk score (from Ns)>0 risk: 6 SCD applied (from [facility] [place]): No SCD contraindicated: other Pharmacological prophylaxis: LMWH Lines/Catheters IV [facility] Type (from [facility] Saline Lock Assessment/Plan Hospital Course 1. right foot cellulitis with necrotic wound, pt has redness and edema only for 5 days. pt has PAD. s/p Right foot incision and drainage 03/19/2019 2. Hypertension, controlled 3. Obesity, 4. Diabetes mellitus type II , BS is uncontrolled 5. ESRD on HD services, MWF 6. Anemia chronic disease, also iron deficiency 7. Hyperkalemia 2/2 ESRD, resolved after HD 8. S/p abd. laparotomy,hx of diverticulosis 9. s/p left foot 3 toe amputation, 10. s.p bilateral lenses replacement, 11. s/p left arm AV fistula creation 12. UTI 13. Non compliance, pt refusing lovenox Assessment/Plan - us ARTERIAL: Monophasic waveforms in the right dorsalis pedis. No focal area of high degree stenosis. -PT IS REF. LOVENOX, spoke to him, explain -c/w VAnco and Rocephin -s/p right wound procedure -c/w HD -hypoglycemic control -start Epogen Result Diagram: 03/19/19 0613 03/19/19 0612 Results 24hrs Laboratory Tests Test 03/18/19 17:32 03/18/19 20:26 03/19/19 01:54 03/19/19 06:02 Bedside Glucose 230 H 264 H 215 Hemoglobin A1c 6.7 H Test 03/19/19 06:12 03/19/19 06:13 03/19/19 06:24 03/19/19 10:09 Sodium Level 140 Potassium Level 4.6 Chloride Level 100 Carbon Dioxide Level 26 Anion Gap 14 H Blood Urea Nitrogen 44 #H Creatinine 5.77 #H Est Glomerular Filtrat 10 L Rate mL/min Glucose Level 204 Uric Acid 4.9 Calcium Level 9.0 Phosphorus Level 4.8 Iron Level 34 L Total Iron Binding 172 L Capacity Percent Iron Saturation 20 L Random Vancomycin Level 17.3 White Blood Count 6.7 Red Blood Count 3.23 L Hemoglobin 9.7 L Hematocrit 29.7 L Mean Corpuscular Volume 92.0 Mean Corpuscular 30.0 Hemoglobin Mean Corpuscular 32.7 Hemoglobin Concent Red Cell Distribution 14.3 Width Platelet Count 218 Mean Platelet Volume 9.6 Immature Granulocytes % 2.900 H Neutrophils % 68.2 Lymphocytes % 12.2 L Monocytes % 12.6 H Eosinophils % 3.8 Basophils % 0.3 Nucleated Red Blood 0.0 Cells % Immature Granulocytes # 0.190 H Neutrophils # 4.5 Lymphocytes # 0.8 Monocytes # 0.8 Eosinophils # 0.3 Basophils # 0.0 Nucleated Red Blood 0.0 Cells # Vitamin D 1,25-Dihydroxy 50.5 Bedside Glucose 195 186 Test 03/19/19 12:43 Bedside Glucose 233 H Subjective 24 Hr Interval Summary Eyes: no complaints ENT: no complaints Respiratory: no complaints Genitourinary: no complaints Musculoskeletal: bone/joint pain, restricted range of motion, swelling (right foot) Endocrine: no complaints Exam/Review of Systems Exam Vitals Vital Signs Date Temp Pulse Resp B/P (MAP) Pulse Ox O2 O2 Flow FiO2 Time Delivery Rate 03/19/19 99.2 97 19 120/60 95 Room Air 14:00 (80) 03/19/19 2.0 08:58 Intake and Output 03/18/19 03/18/19 03/19/19 1515:00 23:00 07:00 IntakeIntake Total 550 ml 250 ml 50 ml OutputOutput Total 200 ml 3700 ml BalanceBalance 550 ml 50 ml -3650 ml Exam No acute distress, no events overnight. Eyes: anicteric, EOM's intact, no pallor Nose: no rhinorrhea Neck: supple, no thyromegaly, no carotid bruits Lungs: clear bilaterally, decreased. CVS: regular rate and rhythm, no murmurs Abdomen: soft, bowel sounds present, no hepatosplenomegally, no masses, no rebound or guarding. Rectal: differed. External genitalia: no lesions. Extremities: no edema, DP pulses are palpable Neuro: alert and oriented x 3 Gait: not checked Motor strength: 5+/5+ Sensory exam: normal Skin: right foot with surgical dressing Results Results 24hrs Laboratory Tests Test 03/18/19 17:32 03/18/19 20:26 03/19/19 01:54 03/19/19 06:02 Bedside Glucose 230 H 264 H 215 Hemoglobin A1c 6.7 H Test 03/19/19 06:12 03/19/19 06:13 03/19/19 06:24 03/19/19 10:09 Sodium Level 140 Potassium Level 4.6 Chloride Level 100 Carbon Dioxide Level 26 Anion Gap 14 H Blood Urea Nitrogen 44 #H Creatinine 5.77 #H Est Glomerular Filtrat 10 L Rate mL/min Glucose Level 204 Uric Acid 4.9 Calcium Level 9.0 Phosphorus Level 4.8 Iron Level 34 L Total Iron Binding 172 L Capacity Percent Iron Saturation 20 L Random Vancomycin Level 17.3 White Blood Count 6.7 Red Blood Count 3.23 L Hemoglobin 9.7 L Hematocrit 29.7 L Mean Corpuscular Volume 92.0 Mean Corpuscular 30.0 Hemoglobin Mean Corpuscular 32.7 Hemoglobin Concent Red Cell Distribution 14.3 Width Platelet Count 218 Mean Platelet Volume 9.6 Immature Granulocytes % 2.900 H Neutrophils % 68.2 Lymphocytes % 12.2 L Monocytes % 12.6 H Eosinophils % 3.8 Basophils % 0.3 Nucleated Red Blood 0.0 Cells % Immature Granulocytes # 0.190 H Neutrophils # 4.5 Lymphocytes # 0.8 Monocytes # 0.8 Eosinophils # 0.3 Basophils # 0.0 Nucleated Red Blood 0.0 Cells # Vitamin D 1,25-Dihydroxy 50.5 Bedside Glucose 195 186 Test 03/19/19 12:43 Bedside Glucose 233 H Medications Medication Current Medications Diagnostic Test (Pha) (Accu-Chek) 1 02 XX ; Start 03/18/19 at 02:00; Status Hold Insulin Aspart (Novolog Insulin Pen) NOVOLOG *MODERATE* ALGORITHM WITH MEALS BEDTIME SC Last administered on 03/18/19at 20:31; Admin Dose 3 UNIT; Start 9 at 08:00; Status Hold Ceftriaxone Sodium 50 ml @ 100 mls/hr Q24H IVPB Last administered on 03/19/19at 02:00; Admin Dose 100 MLS/HR; Start 03/18/19 at 00:30 Acetaminophen (Tylenol Tab) 650 mg Q6H PRN PO MILD PAIN(1-3)OR ELEVATED TEMP; Start 03/18/19 at 00:30 Zolpidem Tartrate (Ambien) 5 mg HS PRN PO INSOMNIA Last administered on 03/18/19at 01:17; Admin Dose 5 MG; Start 03/18/19 at 00:30 Timolol Maleate (Timoptic 0.5%) 1 drop BID BOTH EYES Last administered on 03/19/19 12:53; Admin Dose 1 DROP; Start 03/18/19 at 09:00 Amlodipine Besylate (Norvasc) 5 mg DAILY PO Last administered on 03/19/19 12: 56; Admin Dose 5 MG; Start 03/18/19 at 09:00 Atorvastatin Calcium (Lipitor) 20 mg QHS PO Last administered on 03/18/19 20:28; Admin Dose 20 MG; Start 03/18/19 at 21:00 Docusate Sodium (Colace) 200 mg DAILY PO Last administered on 03/19/19 12:55; Admin Dose 200 MG; Start 03/18/19 at 09:00 Furosemide (Lasix) 40 mg DAILY PO Last administered on 03/19/19 12:56; Admin Dose 40 MG; Start 03/18/19 at 09:00 Insulin Glargine (Lantus) 40 units BID SC Last administered on 03/18/19 20:30; Admin Dose 40 UNITS; Start 03/18/19 at 09:00 Minoxidil (Loniten) 10 mg DAILY PO Last administered on 03/19/19 12:53; Admin Dose 10 MG; Start 03/18/19 at 09:00 Multivit/Ca Carb/ B Cmplx/FA/Prenat (Christi-Sherman) 1 tab DAILY PO Last administered on 03/19/19 12:52; Admin Dose 1 TAB; Start 03/18/19 at 09:00 Non-Formulary Medication 1 ea BID BOTH EYES ; Start 03/18/19 at 09:00; Status UNV Collagenase (Santyl) 1 applic DAILY TOP Last administered on 03/18/19 17:30; Admin Dose 1 APPLIC; Start 03/18/19 at 11:30 Miscellaneous Information 1 ea NOTE XX ; Start 03/18/19 at 11:30 Glucose (Glutose) 15 gm Q15M PRN PO DECREASED GLUCOSE; Start 03/18/19 at 11:30 Glucose (Glutose) 22.5 gm Q15M PRN PO DECREASED GLUCOSE; Start 03/18/19 at 11:30 Dextrose (D50w Syringe) 25 ml Q15M PRN IV DECREASED GLUCOSE; Start 03/18/19 at 11:30 Dextrose (D50w Syringe) 50 ml Q15M PRN IV DECREASED GLUCOSE; Start 03/18/19 at 11:30 Glucagon (Glucagen) 1 mg Q15M PRN IM DECREASED GLUCOSE; Start 03/18/19 at 11:30 Glucose (Glutose) 15 gm Q15M PRN BUCCAL DECREASED GLUCOSE; Start 03/18/19 at 11:30 Pantoprazole (Protonix Tab) 40 mg DAILY@06 PO Last administered on 03/18/19at 16:34; Admin Dose 40 MG; Start 03/18/19 at 16:00 Linagliptin (Tradjenta) 5 mg DAILY PO Last administered on 03/19/19at 12:53; Admin Dose 5 MG; Start 03/18/19 at 15:00 Insulin Aspart (Novolog Insulin Pen) 5 unit WITH MEALS SC Last administered on 03/19/19at 12:48; Admin Dose 5 UNIT; Start 03/18/19 at 17:35 Enoxaparin Sodium (Lovenox) 30 mg DAILY SC ; Start 03/19/19 at 09:00 Vancomycin HCl (Vanco Iv Per Pharmacy) VANCOMYCIN PER PHARMACY PER PROTOCOL XX ; Start 03/18/19 at 15:30 Povidone Iodine (Povidone-Iodine) 1 applic DAILY TOP ; Start 03/19/19 at 09:00 Hydromorphone HCl (Dilaudid) 0.2 mg PACU PRN IV MILD PAIN 1-3; Start 03/19/19 at 08:00; Stop 03/19/19 at 16:00 Hydromorphone HCl (Dilaudid) 0.4 mg PACU PRN IV MOD PAIN 4-6; Start 03/19/19 at 08:00; Stop 03/19/19 at 16:00 Hydromorphone HCl (Dilaudid) 0.6 mg PACU PRN IV SEVERE PAIN 7-10; Start 03/19/19 at 08:00; Stop 03/19/19 at 16:00 Fentanyl (Sublimaze) 25 mcg PACU ORDER PRN IV MILD PAIN 1-3; Start 03/19/19 at 08:00; Stop 03/19/19 at 16:00 Ondansetron HCl (Zofran Inj) 4 mg PACU ORDER PRN IV NAUSEA/VOMITING; Start 03/19/19 at 08:00; Stop 03/19/19 at 16:00 Prochlorperazine (Compazine Inj) 5 mg PACU ORDER PRN IV NAUSEA/VOMITING; Start 03/19/19 at 08:00 Labetalol HCl (Labetalol) 5 mg PACU ORDER PRN IV HIGH BLOOD PRESSURE; Start 03/19/19 at 08:00; Stop 03/19/19 at 16:00 Hydralazine HCl (Apresoline) 5 mg PACU ORDER PRN IV HIGH BLOOD PRESSURE; Start 03/19/19 at 08:00; Stop 03/19/19 at 16:00 Meperidine HCl (Demerol) 25 mg PACU ORDER PRN IV .RIGORS; Start 03/19/19 at 08:00; Stop 03/19/19 at 16:00 Diphenhydramine HCl (Benadryl) 25 mg PACU ORDER PRN IV .PRURITUS; Start 03/19/19 at 08:00; Stop 03/19/19 at 16:00 Vancomycin HCl 250 ml @ 125 mls/hr ONCE IVPB ; Start 03/19/19 at 18:00; Stop 03/19/19 at 23:59 Insulin Aspart (Novolog Insulin Pen) NOVOLOG *MODERATE* ALGORI... AC MEALS AND BEDTIME SC ; Start 03/19/19 at 17:35; Status DRISS THOMPSON NP Mar 19, 2019 14:45
[2019-03-19] MEDS ORDERED: HYDROCODONE/APAP (5/325) TAB PO PRN (15:00)
[2019-03-19] MEDS ORDERED: morphine 2 MG INJ IV PRN (15:00)
--- NOTE | 2019-03-19 17:10 | CONS ---
Assessment/Plan Assessment/Plan Hospital Course (Demo Recall) ID PROGRESS NOTE CURRENT ABX: DAY # => VANCO IV + CEFTRIAXONE 03/19/19 0613 03/19/19 0612 24H INTERVAL SUMMARY * Resting with eyes closed, low grade Tmax 99.+, VSS, NAD, Chart reviewed DIAGNOSTIC IMAGING * 03/19/19 FOOT MRI: * 1. Dorsal soft tissue swelling with a focus of soft tissue inflammation dorsal to the proximal aspect of the first metatarsal and a possible small elongated fluid collection measuring 1 cm in its longest dimension. Findings could be focal cellulitis, phlegmon or small abscess. * 2. No evidence for osteomyelitis. * 3. No evidence for soft tissue air to suggest gangrene. MICRO * 03/17/19 WOUND CULTURE Preliminary Organism 1 STAPHYLOCOCCUS AUREUS QUANTITY SCANT GROWTH * 03/17/19 BCx (-) PHYSICAL EXAMINATION: GENERAL: VSS, NAD HEENT: AT, NC, NECK: Supple, CHEST: Rise symmetrical HEART: Pulse RRR ABDOMEN: EXTREMITIES: Warm, dry == DSG C/D/I SKIN: No rash, no diaphoresis ID ASSESSMENT 59 yo M admit with: 1. Right foot abscess. 2. Right foot cellulitis. 3. Gangrene. 4. 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 5. History of partial right third toe amputation. (?) MRSA Nares ABX ALLERGIES: KNDA INVASIVES: CURRENT ABX: DAY # => VANCO IV + CEFTRIAXONE ID RECOMMENDATIONS/PLAN: 1. Continue current ABX -- await final ID of Staph wound cx pending . Consultation Date/Type/Reason Admit Date/Time Mar 17, 2019 at 19:35 Initial Consult Date Date/Time of Note DATE: 03/19/19 TIME: 17:09 Exam/Review of Systems Exam Vitals Vital Signs Date Temp Pulse Resp B/P (MAP) Pulse Ox O2 O2 Flow FiO2 Time Delivery Rate 03/19/19 99.2 97 19 120/60 95 Room Air 14:00 (80) 03/19/19 2.0 08:58 Intake and Output 03/18/19 03/18/19 03/19/19 1515:00 23:00 07:00 IntakeIntake Total 550 ml 250 ml 50 ml OutputOutput Total 200 ml 3700 ml BalanceBalance 550 ml 50 ml -3650 ml Results Result Diagram: 03/19/19613 03/3/19 0612 Results 24hrs Laboratory Tests Test 03/18/19 17:32 03/18/19 20:26 03/19/19 01:54 03/19/19 06:02 Bedside Glucose 230 H 264 H 215 Hemoglobin A1c 6.7 H Test 03/19/19 06:12 03/19/19 06:13 03/19/19 06:24 03/19/19 10:09 Sodium Level 140 Potassium Level 4.6 Chloride Level 100 Carbon Dioxide Level 26 Anion Gap 14 H Blood Urea Nitrogen 44 #H Creatinine 5.77 #H Est Glomerular Filtrat 10 L Rate mL/min Glucose Level 204 Uric Acid 4.9 Calcium Level 9.0 Phosphorus Level 4.8 Iron Level 34 L Total Iron Binding 172 L Capacity Percent Iron Saturation 20 L Random Vancomycin Level 17.3 White Blood Count 6.7 Red Blood Count 3.23 L Hemoglobin 9.7 L Hematocrit 29.7 L Mean Corpuscular Volume 92.0 Mean Corpuscular 30.0 Hemoglobin Mean Corpuscular 32.7 Hemoglobin Concent Red Cell Distribution 14.3 Width Platelet Count 218 Mean Platelet Volume 9.6 Immature Granulocytes % 2.900 H Neutrophils % 68.2 Lymphocytes % 12.2 L Monocytes % 12.6 H Eosinophils % 3.8 Basophils % 0.3 Nucleated Red Blood 0.0 Cells % Immature Granulocytes # 0.190 H Neutrophils # 4.5 Lymphocytes # 0.8 Monocytes # 0.8 Eosinophils # 0.3 Basophils # 0.0 Nucleated Red Blood 0.0 Cells # Vitamin D 1,25-Dihydroxy 50.5 Bedside Glucose 195 186 Test 03/19/19 12:43 Bedside Glucose 233 H Medications Medication Current Medications Diagnostic Test (Pha) (Accu-Chek) 1 ea 02 XX ; Start 03/18/19 at 02:00; Status Hold Ceftriaxone Sodium 50 ml @ 100 mls/hr Q24H IVPB Last administered on 03/19/19at 02:00; Admin Dose 100 MLS/HR; Start 03/18/19 at 00:30 Acetaminophen (Tylenol Tab) 650 mg Q6H PRN PO MILD PAIN(1-3)OR ELEVATED TEMP; Start 03/18/19 at 00:30 Zolpidem Tartrate (Ambien) 5 mg HS PRN PO INSOMNIA Last administered on 03/18/19at 01:17; Admin Dose 5 MG; Start 03/18/19 at 00:30 Timolol Maleate (Timoptic 0.5%) 1 drop BID BOTH EYES Last administered on 12:53; Admin Dose 1 DROP; Start 03/18/19 at 09:00 Amlodipine Besylate (Norvasc) 5 mg DAILY PO Last administered on 03/19/19 12:56; Admin Dose 5 MG; Start 03/18/19 at 09:00 Atorvastatin Calcium (Lipitor) 20 mg QHS PO Last administered on 03/18/19 20:28; Admin Dose 20 MG; Start 03/18/19 at 21:00 Docusate Sodium (Colace) 200 mg DAILY PO Last administered on 03/19/19 12:55; Admin Dose 200 MG; Start 03/18/19 at 09:00 Furosemide (Lasix) 40 mg DAILY PO Last administered on 03/19/19 12:56; Admin Dose 40 MG; Start 03/18/19 at 09:00 Minoxidil (Loniten) 10 mg DAILY PO Last administered on 03/19/19 12:53; Admin Dose 10 MG; Start 03/18/19 at 09:00 Multivit/Ca Carb/ B Cmplx/FA/Prenat (Christi-Sherman) 1 tab DAILY PO Last administered on 03/19/19 12:52; Admin Dose 1 TAB; Start 03/18/19 at 09:00 Brimonidine Tartrate (Alphagan 0.2%) 1 drop BID BOTH EYES ; Start 03/19/19 at 21:00 Collagenase (Santyl) 1 applic DAILY TOP Last administered on 03/18/19at 17:30; Admin Dose 1 APPLIC; Start 03/18/19 at 11:30 Miscellaneous Information 1 ea NOTE XX ; Start 03/18/19 at 11:30 Glucose (Glutose) 15 gm Q15M PRN PO DECREASED GLUCOSE; Start 03/18/19 at 11:30 Glucose (Glutose) 22.5 gm Q15M PRN PO DECREASED GLUCOSE; Start 03/18/19 at 11:30 Dextrose (D50w Syringe) 25 ml Q15M PRN IV DECREASED GLUCOSE; Start 03/18/19 at 11:30 Dextrose (D50w Syringe) 50 ml Q15M PRN IV DECREASED GLUCOSE; Start 03/18/19 at 11:30 Glucagon (Glucagen) 1 mg Q15M PRN IM DECREASED GLUCOSE; Start 03/18/19 at 11:30 Glucose (Glutose) 15 gm Q15M PRN BUCCAL DECREASED GLUCOSE; Start 03/18/19 at 11:30 Pantoprazole (Protonix Tab) 40 mg DAILY@06 PO Last administered on 03/18/19at 16:34; Admin Dose 40 MG; Start 03/18/19 at 16:00 Linagliptin (Tradjenta) 5 mg DAILY PO Last administered on 03/19/19at 12:53; Admin Dose 5 MG; Start 03/18/19 at 15:00 Insulin Aspart (Novolog Insulin Pen) 5 unit WITH MEALS SC Last administered on 03/19/19at 12:48; Admin Dose 5 UNIT; Start 03/18/19 at 17:35 Vancomycin HCl (Vanco Iv Per Pharmacy) VANCOMYCIN PER PHARMACY PER PROTOCOL XX ; Start 03/18/19 at 15:30 Povidone Iodine (Povidone-Iodine) 1 applic DAILY TOP ; Start 03/19/19 at 09:00 Prochlorperazine (Compazine Inj) 5 mg PACU ORDER PRN IV NAUSEA/VOMITING; Start 03/19/19 at 08:00 Vancomycin HCl 250 ml @ 125 mls/hr ONCE IVPB ; Start 03/19/19 at 18:00; Stop 03/19/19 at 23:59 Ferric Sodium Gluconate Complex 125 mg/Sodium Chloride 110 ml @ 110 mls/hr DAILY@1300 IVPB ; Start 03/20/19 at 13:00; Stop 03/24/19 at 13:59 Epoetin Ronaldo-epbx (Retacrit (Esrd)) 4,000 unit MoWeFr@1700 SC ; Start 03/21/19 at 17:00 Morphine Sulfate (morphine) 2 mg Q4H PRN IV SEVERE PAIN LEVEL 7-10; Start 03/19/19 at 15:00 Acetaminophen/ Hydrocodone Bitart ([place] (5/325)) 1 tab Q6H PRN PO MODERATE PAIN LEVEL 4-6; Start 03/19/19 at 15:00 Insulin Glargine (Lantus) 20 units BID SC ; Start 03/19/19 at 21:00 Heparin Sodium (Porcine) (Heparin (5000 Units/1ml)) 5,000 unit BID SC ; Start 03/19/19 at 21:00 Insulin Aspart (Novolog Insulin Pen) (Adult SC Insulin - Moder... WITH MEALS BEDTIME SC ; Start 03/19/19 at 18:05 JAMIN GLASER NP Mar 19, 2019 17:10
[2019-03-19] MEDS: Insulin NOVOLOG SS MODERATE Algorithm (SS with meals and bedtime) SC SCH ×2 (17:35→20:47)
[2019-03-19] MEDS ORDERED: INSULIN ASPART [NOVOLOG] 3 ML PEN SC SCH (17:35)
[2019-03-19] MEDS ORDERED: VANCOMYCIN 1 GM 250 ML IVPB SCH (18:00)
[2019-03-19] MEDS: BRIMONIDINE 0.2% 5 ML BTL BOTH EYES SCH (20:43)
[2019-03-19] MEDS: ATORVASTATIN 20 MG TAB PO SCH (20:44)
[2019-03-19] MEDS: HEPARIN 5,000 UNIT/1 ML VIAL SC SCH (20:47)
[2019-03-19] MEDS: INSULIN GLARGINE [LANTus] (100 UNITS/ML) SYG SC SCH (20:48)
[2019-03-20] MEDS: CEFTRIAXONE 1 GM/50 ML (PMX) 50 ML IVPB SCH (00:38)
[2019-03-20 02:10] VITALS: BP 117/56; PULSE 86; RESP 18
[2019-03-20] MEDS: PANTOPRAZOLE (EC) 40 MG TAB PO SCH (06:10)
[2019-03-20 08:00] VITALS: BP 132/60; PULSE 84; RESP 19
[2019-03-20] MEDS: INSULIN ASPART [NOVOLOG] 3 ML PEN SC SCH ×3 (08:06→17:23)
[2019-03-20] MEDS: Insulin NOVOLOG SS MODERATE Algorithm (SS with meals and bedtime) SC SCH ×4 (08:08→20:41)
[2019-03-20] MEDS: INSULIN GLARGINE [LANTus] (100 UNITS/ML) SYG SC SCH ×2 (08:10→20:43)
[2019-03-20] MEDS: HEPARIN 5,000 UNIT/1 ML VIAL SC SCH ×2 (08:11→20:44)
[2019-03-20] MEDS: MULTIVIT/CA CARB/B CMPLX/FA TAB PO SCH (08:11)
[2019-03-20] MEDS: LINAGLIPTIN 5 MG TABLET PO SCH (08:11)
[2019-03-20] MEDS: BRIMONIDINE 0.2% 5 ML BTL BOTH EYES SCH ×2 (08:12→20:40)
[2019-03-20] MEDS: TIMOLOL 0.5% 5 ML OPH BOTH EYES SCH ×2 (08:12→20:40)
[2019-03-20] MEDS: DOCUSATE SODIUM 100 MG CAP PO SCH (08:12)
[2019-03-20] MEDS: AMLODIPINE 5 MG TAB PO SCH (08:13)
[2019-03-20] MEDS: MINOXIDIL 10 MG TAB PO SCH (08:13)
[2019-03-20] MEDS: FUROSEMIDE 40 MG TAB PO SCH (08:13)
[2019-03-20] MEDS: POVIDONE IODINE 10% 28.4 GM OINT TOP SCH (08:14)
[2019-03-20] MEDS: COLLAGENASE 5 GM (UD JAR) TOP SCH (08:14)
[2019-03-20] MEDS: SOD FERRIC GLUC COMPLX 125 MG in SOD CHLORIDE 0.9% 100 ML IVPB SCH (13:35)
--- NOTE | 2019-03-20 13:57 | PN ---
Date/Time of Note Date/Time of Note DATE: 03/20/19 TIME: 13:45 Assessment/Plan VTE Prophylaxis Risk score (from Ns)>0 risk: 6 SCD applied (from [facility] [place] SCD contraindicated: bilateral LE trauma Pharmacological prophylaxis: heparin Lines/Catheters IV [facility] Type [facility]from [facility] [place] Urinary Cath still in place: No Assessment/Plan Hospital Course 1. right foot cellulitis with necrotic wound, pt has redness and edema only for 5 days. pt has PAD. s/p Right foot incision and drainage 03/19/2019 2. Hypertension, controlled 3. Obesity, 4. Diabetes mellitus type II , BS is uncontrolled 5. ESRD on HD services, MWF 6. Anemia chronic disease, also iron deficiency 7. Hyperkalemia 2/2 ESRD, resolved after HD 8. S/p abd. laparotomy,hx of diverticulosis 9. s/p left foot 3 toe amputation, 10. s.p bilateral lenses replacement, 11. s/p left arm AV fistula creation 12. UTI 13. Non compliance, pt refusing lovenox Assessment/Plan -c.w a/b -waiting cultures -wound care -f/w ID , surgical and podiatry rec. Result Diagram: 03/20/1944003/20/19440 Results 24hrs Laboratory Tests Test 03/19/19 17:32 03/19/19 20:42 03/20/19 02:07 03/20/19 04:41 Bedside Glucose 231 H 214 216 White Blood Count 8.2 # Red Blood Count 2.98 L Hemoglobin 9.1 L Hematocrit 27.5 L Mean Corpuscular Volume 92.3 Mean Corpuscular 30.5 Hemoglobin Mean Corpuscular 33.1 Hemoglobin Concent Red Cell Distribution 14.1 Width Platelet Count 217 Mean Platelet Volume 9.7 Immature Granulocytes % 2.600 H Neutrophils % 61.2 Lymphocytes % 17.2 Monocytes % 14.6 H Eosinophils % 4.0 Basophils % 0.4 Nucleated Red Blood 0.0 Cells % Immature Granulocytes # 0.210 H Neutrophils # 5.0 Lymphocytes # 1.4 Monocytes # 1.2 H Eosinophils # 0.3 Basophils # 0.0 Nucleated Red Blood 0.0 Cells # Sodium Level 136 Potassium Level 4.5 Chloride Level 99 Carbon Dioxide Level 23 Anion Gap 14 H Blood Urea Nitrogen 66 H Creatinine 7.94 #H Est Glomerular Filtrat 7 L Rate mL/min Glucose Level 190 Calcium Level 8.3 L Test 03/20/19 08:03 03/20/19 12:26 Bedside Glucose 170 188 Subjective 24 Hr Interval Summary Free Text/Dictation no events, no fever Exam/Review of Systems Exam Vitals Vital Signs Date Temp Pulse Resp B/P (MAP) Pulse Ox O2 O2 Flow FiO2 Time Delivery Rate 03/20/19 98.8 84 19 132/60 95 Room Air 08:00 (84) 03/19/19 2.0 08:58 Intake and Output 03/19/19 03/19/19 03/20/19 1515:00 23:00 07:00 IntakeIntake Total 1000 ml 250 ml 50 ml BalanceBalance 1000 ml 250 ml 50 ml Constitutional: alert, oriented Psych: no complaints Head: normocephalic Eyes: nl conjunctiva ENMT: nl external ears & nose Respiratory: clear to auscultation Cardiovascular: regular rate and rhythm Gastrointestinal: soft Genitourinary - Male: CVA tenderness; No nl penis, No nl scrotum, No discharge, No other Musculoskeletal: other (right foot with surgical dressing) Results Results 24hrs Laboratory Tests Test 03/19/19 17:32 03/19/19 20:42 03/20/19 02:07 03/20/19 04:41 Bedside Glucose 231 H 214 216 White Blood Count 8.2 # Red Blood Count 2.98 L Hemoglobin 9.1 L Hematocrit 27.5 L Mean Corpuscular Volume 92.3 Mean Corpuscular 30.5 Hemoglobin Mean Corpuscular 33.1 Hemoglobin Concent Red Cell Distribution 14.1 Width Platelet Count 217 Mean Platelet Volume 9.7 Immature Granulocytes % 2.600 H Neutrophils % 61.2 Lymphocytes % 17.2 Monocytes % 14.6 H Eosinophils % 4.0 Basophils % 0.4 Nucleated Red Blood 0.0 Cells % Immature Granulocytes # 0.210 H Neutrophils # 5.0 Lymphocytes # 1.4 Monocytes # 1.2 H Eosinophils # 0.3 Basophils # 0.0 Nucleated Red Blood 0.0 Cells # Sodium Level 136 Potassium Level 4.5 Chloride Level 99 Carbon Dioxide Level 23 Anion Gap 14 H Blood Urea Nitrogen 66 H Creatinine 7.94 #H Est Glomerular Filtrat 7 L Rate mL/min Glucose Level 190 Calcium Level 8.3 L Test 03/20/19 08:03 03/20/19 12:26 Bedside Glucose 170 188 Medications Medication Current Medications Diagnostic Test (Pha) (Accu-Chek) 1 ea 02 XX ; Start 03/18/19 at 02:00; Status Hold Ceftriaxone Sodium 50 ml @ 100 mls/hr Q24H IVPB Last administered on 03/20/19 00:38; Admin Dose 100 MLS/HR; Start 03/18/19 at 00:30 Acetaminophen (Tylenol Tab) 650 mg Q6H PRN PO MILD PAIN(1-3)OR ELEVATED TEMP; Start 03/18/19 at 00:30 Zolpidem Tartrate (Ambien) 5 mg HS PRN PO INSOMNIA Last administered on 03/18/19 01:17; Admin Dose 5 MG; Start 03/18/19 at 00:30 Timolol Maleate (Timoptic 0.5%) 1 drop BID BOTH EYES Last administered on 03/20/19 08:12; Admin Dose 1 DROP; Start 03/18/19 at 09:00 Amlodipine Besylate (Norvasc) 5 mg DAILY PO Last administered on 03/20/19 08:13; Admin Dose 5 MG; Start 03/18/19 at 09:00 Atorvastatin Calcium (Lipitor) 20 mg QHS PO Last administered on 03/19/19 20:4 4; Admin Dose 20 MG; Start 03/18/19 at 21:00 Docusate Sodium (Colace) 200 mg DAILY PO Last administered on 03/20/19 08:12; Admin Dose 200 MG; Start 03/18/19 at 09:00 Furosemide (Lasix) 40 mg DAILY PO Last administered on 03/20/19 08:13; Admin Dose 40 MG; Start 03/18/19 at 09:00 Minoxidil (Loniten) 10 mg DAILY PO Last administered on 03/20/19 08:13; Admin Dose 10 MG; Start 03/18/19 at 09:00 Multivit/Ca Carb/ B Cmplx/FA/Prenat (Christi-Sherman) 1 tab DAILY PO Last administered on 03/20/19 08:11; Admin Dose 1 TAB; Start 03/18/19 at 09:00 Brimonidine Tartrate (Alphagan 0.2%) 1 drop BID BOTH EYES Last administered on 8/4/19at 08:12; Admin Dose 1 DROP; Start 03/19/19 at 21:00 Collagenase (Santyl) 1 applic DAILY TOP Last administered on 03/18/19at 17:30; Admin Dose 1 APPLIC; Start 03/18/19 at 11:30 Miscellaneous Information 1 ea NOTE XX ; Start 03/18/19 at 11:30 Glucose (Glutose) 15 gm Q15M PRN PO DECREASED GLUCOSE; Start 03/18/19 at 11:30 Glucose (Glutose) 22.5 gm Q15M PRN PO DECREASED GLUCOSE; Start 03/18/19 at 11:30 Dextrose (D50w Syringe) 25 ml Q15M PRN IV DECREASED GLUCOSE; Start 03/18/19 at 11:30 Dextrose (D50w Syringe) 50 ml Q15M PRN IV DECREASED GLUCOSE; Start 03/18/19 at 11:30 Glucagon (Glucagen) 1 mg Q15M PRN IM DECREASED GLUCOSE; Start 03/18/19 at 11:30 Glucose (Glutose) 15 gm Q15M PRN BUCCAL DECREASED GLUCOSE; Start 03/18/19 at 11:30 Pantoprazole (Protonix Tab) 40 mg DAILY@06 PO Last administered on 03/20/19at 06:10; Admin Dose 40 MG; Start 03/18/19 at 16:00 Linagliptin (Tradjenta) 5 mg DAILY PO Last administered on 03/20/19at 08:11; Admin Dose 5 MG; Start 03/18/19 at 15:00 Insulin Aspart (Novolog Insulin Pen) 5 unit WITH MEALS SC Last administered on 03/20/19at 12:29; Admin Dose 5 UNIT; Start 03/18/19 at 17:35 Vancomycin HCl (Vanco Iv Per Pharmacy) VANCOMYCIN PER PHARMACY PER PROTOCOL XX ; Start 03/18/19 at 15:30 Povidone Iodine (Povidone-Iodine) 1 applic DAILY TOP ; Start 03/19/19 at 09:00 Prochlorperazine (Compazine Inj) 5 mg PACU ORDER PRN IV NAUSEA/VOMITING; Start 03/19/19 at 08:00 Ferric Sodium Gluconate Complex 125 mg/Sodium Chloride 110 ml @ 110 mls/hr DAILY@1300 IVPB Last administered on 03/20/19at 13:35; Admin Dose 110 MLS/HR; Start 03/20/19 at 13:00; Stop 03/24/19 at 13:59 Epoetin Ronaldo-epbx (Retacrit (Esrd)) 4,000 unit MoWeFr@1700 SC ; Start 03/21/19 at 17:00 Morphine Sulfate (morphine) 2 mg Q4H PRN IV SEVERE PAIN LEVEL 7-10 Last administered on 03/19/19at 17:55; Admin Dose 2 MG; Start 03/19/19 at 15:00 Acetaminophen/ Hydrocodone Bitart ([place] (5/325)) 1 tab Q6H PRN PO MODERATE PAIN LEVEL 4-6; Start 03/19/19 at 15:00 Insulin Glargine (Lantus) 20 units BID SC Last administered on 03/20/19at 08:10; Admin Dose 20 UNITS; Start 03/19/19 at 21:00 Heparin Sodium (Porcine) (Heparin (5000 Units/1ml)) 5,000 unit BID SC Last administered on 03/20/19at 08:11; Admin Dose 5,000 UNIT; Start 03/19/19 at 21:00 Insulin Aspart (Novolog Insulin Pen) (Adult SC Insulin - Moder... WITH MEALS BEDTIME SC Last administered on 03/20/19at 12:29; Admin Dose 4 UNIT; Start 03/19/19 at 18:05 DRISS CASTELLANOS NP Mar 20, 2019 13:56
[2019-03-20 14:00] VITALS: BP 145/66; PULSE 85; RESP 18
--- NOTE | 2019-03-20 16:29 | CONS ---
DATE OF ADMISSION: 03/17/2019 DATE OF CONSULTATION: 03/20/2019 SUBJECTIVE FINDINGS: The patient is postoperative day #1, incision and drainage of the right foot an d debridement of adjacent ulceration. Cultures pending. The patient relates less pain to the right foot. OBJECTIVE FINDINGS: VITAL SIGNS: Temperature 98.8, pulse is 84, respiratory rate 19, blood pressure is 132/60, pulse ox is 95% on room air. EXTREMITIES: Right foot with decreased erythema, ulceration, dorsal aspect without any drainage, inc ision dry. Foot is warm. Cultures pending. LABORATORIES: WBC 8.2, hemoglobin 9.1, hematocrit 27.5, platelets 217. ASSESSMENT: 1. Right foot abscess, status post incision and drainage. 2. Cellulitis. 3. Diabetes type 2. 4. Peripheral neuropathy. PLAN: Dressings were changed. Wound was irrigated. Will consider possible delayed primary closure pending clinical appearance. The patient is currently on vancomycin and ceftriaxone. Dictated By: TONY MORENO/NIMA Conf#: [id number] DID#: [id number]
--- NOTE | 2019-03-20 17:10 | CONS ---
Assessment/Plan Assessment/Plan Hospital Course (Demo Recall) ID PROGRESS NOTE CURRENT ABX: DAY # => VANCO IV + CEFTRIAXONE 03/20/19 0441 03/20/19 0441 24H INTERVAL SUMMARY * Resting with eyes closed, low grade Tmax 99.+, VSS, NAD, Chart reviewed DIAGNOSTIC IMAGING * 03/19/19 FOOT MRI: * 1. Dorsal soft tissue swelling with a focus of soft tissue inflammation dorsal to the proximal aspect of the first metatarsal and a possible small elongated fluid collection measuring 1 cm in its longest dimension. Findings could be focal cellulitis, phlegmon or small abscess. * 2. No evidence for osteomyelitis. * 3. No evidence for soft tissue air to suggest gangrene. MICRO * 03/19/19 I&D WOUND CX: WOUND CULTURE Preliminary Organism 1 STAPHYLOCOCCUS AUREUS QUANTITY 1+ * 03/17/19 WOUND CULTURE Final Organism 1 STAPHYLOCOCCUS AUREUS QUANTITY SCANT GROWTH S AUREUS M.I.C. RX --------- --- CEFAZOLIN S CIPROFLOXACIN >=8 R CLINDAMYCIN <=0.25 S DOXYCYCLINE S ERYTHROMYCIN <=0.25 S LEVOFLOXACIN 4 R OXACILLIN 0.5 S PENICILLIN-G >=0.5 R RIFAMPIN <=0.5 S VANCOMYCIN 1 S TRIMETHOPRIM/SULFAMETHOXAZOLE >=320 R * 03/17/19 BCx (-) PHYSICAL EXAMINATION: GENERAL: VSS, NAD HEENT: AT, NC, NECK: Supple, CHEST: Rise symmetrical HEART: Pulse RRR ABDOMEN: EXTREMITIES: Warm, dry == DSG C/D/I SKIN: No rash, no diaphoresis ID ASSESSMENT 59 yo M admit with: 1. Right foot abscess. 2. Right foot cellulitis. 3. Gangrene. 4. 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 5. History of partial right third toe amputation. 6. ESRD-> HD SINCE MAY 2018 (?) MRSA Nares ABX ALLERGIES: KNDA INVASIVES: CURRENT ABX: DAY # => VANCO IV + CEFTRIAXONE ID RECOMMENDATIONS/PLAN: 1. Continue Vanco IV for now == Patient is ESRD on HD, easy to get Vanco IV ABX @ HD center 2. Change Ceftriaxone to ANCEF == ABX of choice for (+)HAI -- pharmacy may dose per renal 3. ID Team Colleagues to f/u next week . Consultation Date/Type/Reason Admit Date/Time Mar 17, 2019 at 19:35 Initial Consult Date Date/Time of Note DATE: 03/20/19 TIME: 17:04 Exam/Review of Systems Exam Vitals Vital Signs Date Temp Pulse Resp B/P (MAP) Pulse Ox O2 O2 Flow FiO2 Time Delivery Rate 03/20/19 97.8 85 18 145/66 95 Room Air 14:00 (92) 03/19/19 2.0 08:58 Intake and Output 03/19/19 03/19/19 03/20/19 1515:00 23:00 07:00 IntakeIntake Total 1000 ml 250 ml 50 ml BalanceBalance 1000 ml 250 ml 50 ml Results Result Diagram: 03/20/19 0441 03/20/19 0441 Results 24hrs Laboratory Tests Test 03/19/19 17:32 03/19/19 20:42 03/20/19 02:07 03/20/19 04:41 Bedside Glucose 231 H 214 216 White Blood Count 8.2 # Red Blood Count 2.98 L Hemoglobin 9.1 L Hematocrit 27.5 L Mean Corpuscular Volume 92.3 Mean Corpuscular 30.5 Hemoglobin Mean Corpuscular 33.1 Hemoglobin Concent Red Cell Distribution 14.1 Width Platelet Count 217 Mean Platelet Volume 9.7 Immature Granulocytes % 2.600 H Neutrophils % 61.2 Lymphocytes % 17.2 Monocytes % 14.6 H Eosinophils % 4.0 Basophils % 0.4 Nucleated Red Blood 0.0 Cells % Immature Granulocytes # 0.210 H Neutrophils # 5.0 Lymphocytes # 1.4 Monocytes # 1.2 H Eosinophils # 0.3 Basophils # 0.0 Nucleated Red Blood 0.0 Cells # Sodium Level 136 Potassium Level 4.5 Chloride Level 99 Carbon Dioxide Level 23 Anion Gap 14 H Blood Urea Nitrogen 66 H Creatinine 7.94 #H Est Glomerular Filtrat 7 L Rate mL/min Glucose Level 190 Calcium Level 8.3 L Test 03/20/19 08:03 03/20/19 12:26 Bedside Glucose 170 188 Medications Medication Current Medications Diagnostic Test (Pha) (Accu-Chek) 1 02 XX ; Start 03/18/19 at 02:00; Status Hold Ceftriaxone Sodium 50 ml @ 100 mls/hr Q24H IVPB Last administered on 03/20/19at 00:38; Admin Dose 100 MLS/HR; Start 03/18/19 at 00:30 Acetaminophen (Tylenol Tab) 650 mg Q6H PRN PO MILD PAIN(1-3)OR ELEVATED TEMP; Start 03/18/19 at 00:30 Zolpidem Tartrate (Ambien) 5 mg HS PRN PO INSOMNIA Last administered on 03/18/19 01:17; Admin Dose 5 MG; Start 03/18/19 at 00:30 Timolol Maleate (Timoptic 0.5%) 1 drop BID BOTH EYES Last administered on 03/20/19 08:12; Admin Dose 1 DROP; Start 03/18/19 at 09:00 Amlodipine Besylate (Norvasc) 5 mg DAILY PO Last administered on 03/20/19 08:13; Admin Dose 5 MG; Start 03/18/19 at 09:00 Atorvastatin Calcium (Lipitor) 20 mg QHS PO Last administered on 03/19/19 20:44; Admin Dose 20 MG; Start 03/18/19 at 21:00 Docusate Sodium (Colace) 200 mg DAILY PO Last administered on 03/20/19 08:12; Admin Dose 200 MG; Start 03/18/19 at 09:00 Furosemide (Lasix) 40 mg DAILY PO Last administered on 03/20/19 08:13; Admin Dose 40 MG; Start 03/18/19 at 09:00 Minoxidil (Loniten) 10 mg DAILY PO Last administered on 03/20/19 08:13; Admin Dose 10 MG; Start 03/18/19 at 09:00 Multivit/Ca Carb/ B Cmplx/FA/Prenat (Christi-Sherman) 1 tab DAILY PO Last administered on 03/20/19 08:11; Admin Dose 1 TAB; Start 03/18/19 at 09:00 Brimonidine Tartrate (Alphagan 0.2%) 1 drop BID BOTH EYES Last administered on 03/20/19 08:12; Admin Dose 1 DROP; Start 03/19/19 at 21:00 Collagenase (Santyl) 1 applic DAILY TOP Last administered on 03/18/19 17:30; Admin Dose 1 APPLIC; Start 03/18/19 at 11:30 Miscellaneous Information 1 ea NOTE XX ; Start 03/18/19 at 11:30 Glucose (Glutose) 15 gm Q15M PRN PO DECREASED GLUCOSE; Start 03/18/19 at 11:30 Glucose (Glutose) 22.5 gm Q15M PRN PO DECREASED GLUCOSE; Start 03/18/19 at 11:30 Dextrose (D50w Syringe) 25 ml Q15M PRN IV DECREASED GLUCOSE; Start 03/18/19 at 11:30 Dextrose (D50w Syringe) 50 ml Q15M PRN IV DECREASED GLUCOSE; Start 03/18/19 at 11:30 Glucagon (Glucagen) 1 mg Q15M PRN IM DECREASED GLUCOSE; Start 03/18/19 at 11:30 Glucose (Glutose) 15 gm Q15M PRN BUCCAL DECREASED GLUCOSE; Start 03/18/19 at 11:30 Pantoprazole (Protonix Tab) 40 mg DAILY@06 PO Last administered on 03/20/19at 06:10; Admin Dose 40 MG; Start 03/18/19 at 16:00 Linagliptin (Tradjenta) 5 mg DAILY PO Last administered on 03/20/19at 08:11; Adm in Dose 5 MG; Start 03/18/19 at 15:00 Insulin Aspart (Novolog Insulin Pen) 5 unit WITH MEALS SC Last administered on 03/20/19at 12:29; Admin Dose 5 UNIT; Start 03/18/19 at 17:35 Vancomycin HCl (Vanco Iv Per Pharmacy) VANCOMYCIN PER PHARMACY PER PROTOCOL XX ; Start 03/18/19 at 15:30 Povidone Iodine (Povidone-Iodine) 1 applic DAILY TOP ; Start 03/19/19 at 09:00 Prochlorperazine (Compazine Inj) 5 mg PACU ORDER PRN IV NAUSEA/VOMITING; Start 03/19/19 at 08:00 Ferric Sodium Gluconate Complex 125 mg/Sodium Chloride 110 ml @ 110 mls/hr DAILY@1300 IVPB Last administered on 03/20/19at 13:35; Admin Dose 110 MLS/HR; Start 03/20/19 at 13:00; Stop 03/24/19 at 13:59 Epoetin Ronaldo-epbx (Retacrit (Esrd)) 4,000 unit MoWeFr@1700 SC ; Start 03/21/19 at 17:00 Morphine Sulfate (morphine) 2 mg Q4H PRN IV SEVERE PAIN LEVEL 7-10 Last administered on 03/19/19at 17:55; Admin Dose 2 MG; Start 03/19/19 at 15:00 Acetaminophen/ Hydrocodone Bitart ([place] (5/325)) 1 tab Q6H PRN PO MODERATE PAIN LEVEL 4-6; Start 03/19/19 at 15:00 Insulin Glargine (Lantus) 20 units BID SC Last administered on 03/20/19 08:10; Admin Dose 20 UNITS; Start 03/19/19 at 21:00 Heparin Sodium (Porcine) (Heparin (5000 Units/1ml)) 5,000 unit BID SC Last administered on 03/20/19 08:11; Admin Dose 5,000 UNIT; Start 03/19/19 at 21:00 Insulin Aspart (Novolog Insulin Pen) (Adult SC Insulin - Moder... WITH MEALS BEDTIME SC Last administered on 03/20/19 12:29; Admin Dose 4 UNIT; Start 03/19/19 at 18:05 JAMIN GLASER NP Mar 20, 2019 17:10
[2019-03-20 20:00] VITALS: BP 127/58; PULSE 84; RESP 18
[2019-03-20] MEDS: ATORVASTATIN 20 MG TAB PO SCH (20:40)
[2019-03-20] MEDS: CEFAZOLIN 1 GM/50 ML (PMX) 50 ML IVPB SCH (21:19)
[2019-03-21] VITALS (14 sets, daily range): BP systolic 130–167; BP diastolic 55–78; PULSE 82–98; RESP 18–19
[2019-03-21] MEDS: PANTOPRAZOLE (EC) 40 MG TAB PO SCH (06:07)
[2019-03-21] MEDS: Insulin NOVOLOG SS MODERATE Algorithm (SS with meals and bedtime) SC SCH ×4 (08:00→20:57)
[2019-03-21] MEDS: INSULIN ASPART [NOVOLOG] 3 ML PEN SC SCH ×3 (08:01→17:19)
[2019-03-21] MEDS: TIMOLOL 0.5% 5 ML OPH BOTH EYES SCH ×2 (08:02→20:54)
[2019-03-21] MEDS: HEPARIN 5,000 UNIT/1 ML VIAL SC SCH ×2 (08:02→20:55)
[2019-03-21] MEDS: DOCUSATE SODIUM 100 MG CAP PO SCH (08:03)
[2019-03-21] MEDS: LINAGLIPTIN 5 MG TABLET PO SCH (08:03)
[2019-03-21] MEDS: BRIMONIDINE 0.2% 5 ML BTL BOTH EYES SCH ×2 (08:03→20:54)
[2019-03-21] MEDS: MULTIVIT/CA CARB/B CMPLX/FA TAB PO SCH (08:03)
[2019-03-21] MEDS: INSULIN GLARGINE [LANTus] (100 UNITS/ML) SYG SC SCH ×2 (08:04→20:56)
[2019-03-21] MEDS: POVIDONE IODINE 10% 28.4 GM OINT TOP SCH (08:05)
[2019-03-21] MEDS: COLLAGENASE 5 GM (UD JAR) TOP SCH (08:06)
[2019-03-21] MEDS: FUROSEMIDE 40 MG TAB PO SCH (08:38)
[2019-03-21] MEDS: MINOXIDIL 10 MG TAB PO SCH (08:38)
[2019-03-21] MEDS: AMLODIPINE 5 MG TAB PO SCH (08:38)
--- NOTE | 2019-03-21 11:31 | CONS ---
Assessment/Plan Assessment/Plan Assessment/Plan (Daily) Right foot abscess, status post incision and drainage. Cellulitis. Diabetes type 2. Peripheral neuropathy. PLAN Continue with daily dressing changes. Wound cultures showing staph aureus and appreciate ID abx recommendations. Non invasive arterial studies and MRI review ed. Pending clinical appearance will plan for delayed primary closure. Consultation Date/Type/Reason Admit Date/Time Mar 17, 2019 at 19:35 Initial Consult Date Date/Time of Note DATE: 03/21/19 TIME: 11:31 24 HR Interval Summary Free Text/Dictation No acute events overnight. Exam/Review of Systems Exam Vitals Vital Signs Date Temp Pulse Resp B/P (MAP) Pulse Ox O2 O2 Flow FiO2 Time Delivery Rate 03/21/19 99.2 86 18 130/78 94 07:58 (95) 03/20/19 Room Air 14:00 03/19/19 2.0 08:58 Intake and Output 03/20/19 03/20/19 03/21/19 1515:00 23:00 07:00 IntakeIntake Total 990 ml 750 ml OutputOutput Total 20 ml 300 ml 3 ml BalanceBalance 970 ml 450 ml -3 ml Exam Dorsal surgical incision site with temporary suture placement. There is serosanguinous drainage noted adjacent to the surgical incision site a diabetic ulcer is present fibrotic in nature 0.7 x 0.4 x 0.3cm no probing to bone from ulceration site There is periwound erythema noted No proximal streaking noted No pain on palpation Absent protective sensations. Muscle strength 5/5 in all compartments of the foot Pulses palpable Non invasive arterial studies IMPRESSION: Monophasic waveforms in the right dorsalis pedis. No focal area of high degree stenosis. Foot MRI IMPRESSION: 1. Dorsal soft tissue swelling with a focus of soft tissue inflammation dorsal to the proximal aspect of the first metatarsal and a possible small elongated fluid collection measuring 1 cm in its longest dimension. Findings could be focal cellulitis, phlegmon or small abscess. 2. No evidence for osteomyelitis. 3. No evidence for soft tissue air to suggest gangrene. Results Result Diagram: 03/20/19 0441 03/20/19 0441 Results 24hrs Laboratory Tests Test 03/20/19 12:26 03/20/19 17:21 03/20/19 20:39 03/21/19 07:59 Bedside Glucose 188 176 178 133 Medications Medication Current Medications Diagnostic Test (Pha) (Accu-Chek) 1 ea 02 XX ; Start 03/18/19 at 02:00; Status Hold Acetaminophen (Tylenol Tab) 650 mg Q6H PRN PO MILD PAIN(1-3)OR ELEVATED TEMP; Start 03/18/19 at 00:30 Zolpidem Tartrate (Ambien) 5 mg HS PRN PO INSOMNIA Last administered on 03/18/19 01:17; Admin Dose 5 MG; Start 03/18/19 at 00:30 Timolol Maleate (Timoptic 0.5%) 1 drop BID BOTH EYES Last administered on 03/21/19 08:02; Admin Dose 1 DROP; Start 03/18/19 at 09:00 Amlodipine Besylate (Norvasc) 5 mg DAILY PO Last administered on 03/20/19 08:13; Admin Dose 5 MG; Start 03/18/19 at 09:00 Atorvastatin Calcium (Lipitor) 20 mg QHS PO Last administered on 03/20/19 20:40; Admin Dose 20 MG; Start 03/18/19 at 21:00 Docusate Sodium (Colace) 200 mg DAILY PO Last administered on 03/21/19 08:03; Admin Dose 200 MG; Start 03/18/19 at 09:00 Furosemide (Lasix) 40 mg DAILY PO Last administered on 03/20/19 08:13; Admin Dose 40 MG; Start 03/18/19 at 09:00 Minoxidil (Loniten) 10 mg DAILY PO Last administered on 03/20/19 08:13; Admin Dose 10 MG; Start 03/18/19 at 09:00 Multivit/Ca Carb/ B Cmplx/FA/Prenat (Christi-Sherman) 1 tab DAILY PO Last administered on 03/21/19 08:03; Admin Dose 1 TAB; Start 03/18/19 at 09:00 Brimonidine Tartrate (Alphagan 0.2%) 1 drop BID BOTH EYES Last administered on 03/21/19 08:03; Admin Dose 1 DROP; Start 03/19/19 at 21:00 Collagenase (Santyl) 1 applic DAILY TOP Last administered on 03/18/19 17:30; Admin Dose 1 APPLIC; Start 03/18/19 at 11:30 Miscellaneous Information 1 ea NOTE XX ; Start 03/18/19 at 11:30 Glucose (Glutose) 15 gm Q15M PRN PO DECREASED GLUCOSE; Start 03/18/19 at 11:30 Glucose (Glutose) 22.5 gm Q15M PRN PO DECREASED GLUCOSE; Start 03/18/19 at 11:30 Dextrose (D50w Syringe) 25 ml Q15M PRN IV DECREASED GLUCOSE; Start 03/18/19 at 11:30 Dextrose (D50w Syringe) 50 ml Q15M PRN IV DECREASED GLUCOSE; Start 03/18/19 at 11:30 Glucagon (Glucagen) 1 mg Q15M PRN IM DECREASED GLUCOSE; Start 03/18/19 at 11:30 Glucose (Glutose) 15 gm Q15M PRN BUCCAL DECREASED GLUCOSE; Start 03/18/19 at 11:30 Pantoprazole (Protonix Tab) 40 mg DAILY@06 PO Last administered on 03/21/19at 06:07; Admin Dose 40 MG; Start 03/18/19 at 16:00 Linagliptin (Tradjenta) 5 mg DAILY PO Last administered on 03/21/19at 08:03; Admin Dose 5 MG; Start 03/18/19 at 15:00 Insulin Aspart (Novolog Insulin Pen) 5 unit WITH MEALS SC Last administered on 03/21/19at 08:01; Admin Dose 5 UNIT; Start 03/18/19 at 17:35 Vancomycin HCl (Vanco Iv Per Pharmacy) VANCOMYCIN PER PHARMACY PER PROTOCOL XX ; Start 03/18/19 at 15:30 Povidone Iodine (Povidone-Iodine) 1 applic DAILY TOP ; Start 03/19/19 at 09:00 Prochlorperazine (Compazine Inj) 5 mg PACU ORDER PRN IV NAUSEA/VOMITING; Start 03/19/19 at 08:00 Ferric Sodium Gluconate Complex 125 mg/Sodium Chloride 110 ml @ 110 mls/hr DAILY@1300 IVPB Last administered on 03/20/19at 13:35; Admin Dose 110 MLS/HR; Start 03/20/19 at 13:00; Stop 03/24/19 at 13:59 Epoetin Ronaldo-epbx (Retacrit (Esrd)) 4,000 unit MoWeFr@1700 SC ; Start 03/21/19 at 17:00 Morphine Sulfate (morphine) 2 mg Q4H PRN IV SEVERE PAIN LEVEL 7-10 Last administered on 03/19/19 17:55; Admin Dose 2 MG; Start 03/19/19 at 15:00 Acetaminophen/ Hydrocodone Bitart ([place] (5/325)) 1 tab Q6H PRN PO MODERATE PAIN LEVEL 4-6; Start 03/19/19 at 15:00 Insulin Glargine (Lantus) 20 units BID SC Last administered on 03/21/19 08:04; Admin Dose 20 UNITS; Start 03/19/19 at 21:00 Heparin Sodium (Porcine) (Heparin (5000 Units/1ml)) 5,000 unit BID SC Last administered on 03/21/19 08:02; Admin Dose 5,000 UNIT; Start 03/19/19 at 21:00 Insulin Aspart (Novolog Insulin Pen) (Adult SC Insulin - Moder... WITH MEALS BEDTIME SC Last administered on 03/20/19 17:24; Admin Dose 2 UNIT; Start 03/19/19 at 18:05 Cefazolin Sodium 50 ml @ 100 mls/hr Q24H IVPB Last administered on 03/20/19at 21:19; Admin Dose 100 MLS/HR; Start 03/20/19 at 22:00 ROSALINDA CERVANTES DPM Mar 21, 2019 11:31
[2019-03-21] MEDS: SOD FERRIC GLUC COMPLX 125 MG in SOD CHLORIDE 0.9% 100 ML IVPB SCH (12:12)
--- NOTE | 2019-03-21 13:57 | PN ---
Date/Time of Note Date/Time of Note DATE: 03/21/19 TIME: 13:53 Assessment/Plan VTE Prophylaxis Risk score (from Nsg)>0 risk: 5 SCD applied (from Ns): No SCD contraindicated: low risk/ambulating Pharmacological prophylaxis: NA/contraindicated Pharm contraindication: low risk/ambulating Lines/Catheters [facility] Urinary Cath still in place: No Assessment/Plan Assessment/Plan Hospital Course 1. right foot cellulitis with necrotic wound, pt has redness and edema only for 5 days. . s/p incision and drainage, right foot below fascia with pulse irrigation, excisional debridement of ulceration and necrotic skin and subcutaneous tissue of less than 20 cm2.on 03/19 cx +staph 2. Hypertension, controlled, lows side 3. Obesity, 4. Diabetes mellitus type II , BS is uncontrolled 5. ESRD on HD services, [facility] 6. Anemia chronic disease, also iron deficiency 7. Hyperkalemia 2/2 ESRD, resolved after HD 8. S/p abd. laparotomy,hx of diverticulosis 9. s/p left foot 3 toe amputation, 10. s.p bilateral lenses replacement, 11. s/p left arm AV fistula creation 12. UTI 13. Non compliance, pt refusing lovenox Assessment/Plan -c.w a/b vancomycin/Ancef per ID - hd mwf -bld Cultures have been negative so far -Hold minoxidil continue with amlodipine and Lasix as bp bordeline - ? Surgery per podiatry we will check with them again -Disposal pending podiatry/ ID recommendations -wound care -CW with Lantus 20 twice daily Tradjenta -GI and DVT prophylaxis Result Diagram: 03/20/191 03/20/19 0441 Results 24hrs Laboratory Tests Test 03/20/19 17:21 03/20/19 20:39 03/21/19 07:59 03/21/19 12:09 Bedside Glucose 176 178 133 147 Subjective 24 Hr Interval Summary Free Text/Dictation Low-grade fever. Exam/Review of Systems Exam Vitals Vital Signs Date Temp Pulse Resp B/P (MAP) Pulse Ox O2 O2 Flow FiO2 Time Delivery Rate 03/21/19 99.2 86 18 130/78 94 07:58 (95) 03/20/19 Room Air 14:00 03/19/19 2.0 08:58 Intake and Output 03/20/19 03/20/19 03/21/19 1515:00 23:00 07:00 IntakeIntake Total 990 ml 750 ml OutputOutput Total 20 ml 300 ml 3 ml BalanceBalance 970 ml 450 ml -3 ml Exam Psych: no complaints Head: normocephalic Eyes: nl conjunctiva ENMT: nl external ears & nose Respiratory: clear to auscultation Cardiovascular: regular rate and rhythm Gastrointestinal: soft Genitourinary - Male: CVA tenderness; No nl penis, No nl scrotum, No discharge, No other Musculoskeletal: other (right foot with surgical dressing) Results Results 24hrs Laboratory Tests Test 03/20/19 17:21 03/20/19 20:39 03/21/19 07:59 03/21/19 12:09 Bedside Glucose 176 178 133 147 Medications Medication Current Medications Diagnostic Test (Pha) (Accu-Chek) 1 ea 02 XX ; Start 03/18/19 at 02:00; Status Hold Acetaminophen (Tylenol Tab) 650 mg Q6H PRN PO MILD PAIN(1-3)OR ELEVATED TEMP; Start 03/18/19 at 00:30 Zolpidem Tartrate (Ambien) 5 mg HS PRN PO INSOMNIA Last administered on 03/18/19 01:17; Admin Dose 5 MG; Start 03/18/19 at 00:30 Timolol Maleate (Timoptic 0.5%) 1 drop BID BOTH EYES Last administered on 03/21/19 08:02; Admin Dose 1 DROP; Start 03/18/19 at 09:00 Amlodipine Besylate (Norvasc) 5 mg DAILY PO Last administered on 03/20/19 08:13; Admin Dose 5 MG; Start 03/18/19 at 09:00 Atorvastatin Calcium (Lipitor) 20 mg QHS PO Last administered on 03/20/19 20:40; Admin Dose 20 MG; Start 03/18/19 at 21:00 Docusate Sodium (Colace) 200 mg DAILY PO Last administered on 03/21/19 08:03; Admin Dose 200 MG; Start 03/18/19 at 09:00 Furosemide (Lasix) 40 mg DAILY PO Last administered on 03/20/19 08:13; Admin Dose 40 MG; Start 03/18/19 at 09:00 Minoxidil (Loniten) 10 mg DAILY PO Last administered on 03/20/19at 08:13; Admin Dose 10 MG; Start 03/18/19 at 09:00 Multivit/Ca Carb/ B Cmplx/FA/Prenat (Christi-Sherman) 1 tab DAILY PO Last administered on 03/21/19at 08:03; Admin Dose 1 TAB; Start 03/18/19 at 09:00 Brimonidine Tartrate (Alphagan 0.2%) 1 drop BID BOTH EYES Last administered on 03/21/19 08:03; Admin Dose 1 DROP; Start 03/19/19 at 21:00 Collagenase (Santyl) 1 applic DAILY TOP Last administered on 03/18/19at 17:30; Admin Dose 1 APPLIC; Start 03/18/19 at 11:30 Miscellaneous Information 1 ea NOTE XX ; Start 03/18/19 at 11:30 Glucose (Glutose) 15 gm Q15M PRN PO DECREASED GLUCOSE; Start 03/18/19 at 11:30 Glucose (Glutose) 22.5 gm Q15M PRN PO DECREASED GLUCOSE; Start 03/18/19 at 11:30 Dextrose (D50w Syringe) 25 ml Q15M PRN IV DECREASED GLUCOSE; Start 03/18/19 at 11:30 Dextrose (D50w Syringe) 50 ml Q15M PRN IV DECREASED GLUCOSE; Start 03/18/19 at 11:30 Glucagon (Glucagen) 1 mg Q15M PRN IM DECREASED GLUCOSE; Start 03/18/19 at 11:30 Glucose (Glutose) 15 gm Q15M PRN BUCCAL DECREASED GLUCOSE; Start 03/18/19 at 11:30 Pantoprazole (Protonix Tab) 40 mg DAILY@06 PO Last administered on 03/21/19at 06:07; Admin Dose 40 MG; Start 03/18/19 at 16:00 Linagliptin (Tradjenta) 5 mg DAILY PO Last administered on 03/21/19at 08:03; Admin Dose 5 MG; Start 03/18/19 at 15:00 Insulin Aspart (Novolog Insulin Pen) 5 unit WITH MEALS SC Last administered on 03/21/19at 12:11; Admin Dose 5 UNIT; Start 03/18/19 at 17:35 Vancomycin HCl (Vanco Iv Per Pharmacy) VANCOMYCIN PER PHARMACY PER PROTOCOL XX ; Start 03/18/19 at 15:30 Povidone Iodine (Povidone-Iodine) 1 applic DAILY TOP ; Start 03/19/19 at 09:00 Prochlorperazine (Compazine Inj) 5 mg PACU ORDER PRN IV NAUSEA/VOMITING; Start 03/19/19 at 08:00 Ferric Sodium Gluconate Complex 125 mg/Sodium Chloride 110 ml @ 110 mls/hr DAILY@1300 IVPB Last administered on 03/21/19 12:12; Admin Dose 110 MLS/HR; Start 03/20/19 at 13:00; Stop 03/24/19 at 13:59 Epoetin Ronaldo-epbx (Retacrit (Esrd)) 4,000 unit MoWeFr@1700 SC ; Start 03/21/19 at 17:00 Morphine Sulfate (morphine) 2 mg Q4H PRN IV SEVERE PAIN LEVEL 7-10 Last administered on 03/19/19at 17:55; Admin Dose 2 MG; Start 03/19/19 at 15:00 Acetaminophen/ Hydrocodone Bitart ([place] (5/325)) 1 tab Q6H PRN PO MODERATE PAIN LEVEL 4-6; Start 03/19/19 at 15:00 Insulin Glargine (Lantus) 20 units BID SC Last administered on 03/21/19 08:04; Admin Dose 20 UNITS; Start 03/19/19 at 21:00 Heparin Sodium (Porcine) (Heparin (5000 Units/1ml)) 5,000 unit BID SC Last administered on 03/21/19 08:02; Admin Dose 5,000 UNIT; Start 03/19/19 at 21:00 Insulin Aspart (Novolog Insulin Pen) (Adult SC Insulin - Moder... WITH MEALS BEDTIME SC Last administered on 03/21/19 12:12; Admin Dose 2 UNIT; Start 03/19/19 at 18:05 Cefazolin Sodium 50 ml @ 100 mls/hr Q24H IVPB Last administered on 03/20/19 21:19; Admin Dose 100 MLS/HR; Start 03/20/19 at 22:00 DEONNA TILLMAN MD Mar 21, 2019 13:57
--- NOTE | 2019-03-21 15:18 | CONS ---
Assessment/Plan Assessment/Plan Hospital Course (Demo Recall) No acute changes overnight patient is alert feels good denies pain no fevers Wound culture grew oxacillin sensitive staph aureus. Antimicrobials: Vancomycin and Ancef Physical examination: Well-developed elderly man who is alert in no distress. Head atraumatic normocephalic. Neck is supple. Chest rise symmetrical. Heart: S1-S2 abdomen soft bowel sounds present Assessment: 1. Status post right foot abscess I&D 2. End-stage renal disease, hemodialysis dependent 3. Diabetes with diabetic neuropathy Plan: Patient remains stable podiatry on case we can send him home on IV vancomycin to be given at hemodialysis center and either oral Keflex or oral clindamycin to complete 2 weeks Consultation Date/Type/Reason Admit Date/Time Mar 17, 2019 at 19:35 Initial Consult Date Type of Consult id Date/Time of Note DATE: 03/21/19 TIME: 15:18 Exam/Review of Systems Exam Vitals Vital Signs Date Temp Pulse Resp B/P (MAP) Pulse Ox O2 O2 Flow FiO2 Time Delivery Rate 03/21/19 98.8 90 19 140/65 100 14:11 (90) 03/20/19 Room Air 14:00 03/19/19 2.0 08:58 Intake and Output 03/20/19 03/20/19 03/21/19 1515:00 23:00 07:00 IntakeIntake Total 990 ml 750 ml OutputOutput Total 20 ml 300 ml 3 ml BalanceBalance 970 ml 450 ml -3 ml Results Result Diagram: 03/20/19 0441 03/20/19 0441 Results 24hrs Laboratory Tests Test 03/20/19 17:21 03/20/19 20:39 03/21/19 07:59 03/21/19 12:09 Bedside Glucose 176 178 133 147 Medications Medication Current Medications Diagnostic Test (Pha) (Accu-Chek) 1 ea 02 XX ; Start 03/18/19 at 02:00; Status Hold Acetaminophen (Tylenol Tab) 650 mg Q6H PRN PO MILD PAIN(1-3)OR ELEVATED TEMP; Start 03/18/19 at 00:30 Zolpidem Tartrate (Ambien) 5 mg HS PRN PO INSOMNIA Last administered on 03/18/19at 01:17; Admin Dose 5 MG; Start 03/18/19 at 00:30 Timolol Maleate (Timoptic 0.5%) 1 drop BID BOTH EYES Last administered on 03/21/19 08:02; Admin Dose 1 DROP; Start 03/18/19 at 09:00 Amlodipine Besylate (Norvasc) 5 mg DAILY PO Last administered on 03/20/19 08:13; Admin Dose 5 MG; Start 03/18/19 at 09:00 Atorvastatin Calcium (Lipitor) 20 mg QHS PO Last administered on 03/20/19 20:40; Admin Dose 20 MG; Start 03/18/19 at 21:00 Docusate Sodium (Colace) 200 mg DAILY PO Last administered on 03/21/19 08:03; Admin Dose 200 MG; Start 03/18/19 at 09:00 Furosemide (Lasix) 40 mg DAILY PO Last administered on 03/20/19 08:13; Admin Dose 40 MG; Start 03/18/19 at 09:00 Multivit/Ca Carb/ B Cmplx/FA/Prenat (Christi-Sherman) 1 tab DAILY PO Last administered on 03/21/19 08:03; Admin Dose 1 TAB; Start 03/18/19 at 09:00 Brimonidine Tartrate (Alphagan 0.2%) 1 drop BID BOTH EYES Last administered on 03/21/19 08:03; Admin Dose 1 DROP; Start 03/19/19 at 21:00 Collagenase (Santyl) 1 applic DAILY TOP Last administered on 03/18/19 17:30; Admin Dose 1 APPLIC; Start 03/18/19 at 11:30 Miscellaneous Information 1 ea NOTE XX ; Start 03/18/19 at 11:30 Glucose (Glutose) 15 gm Q15M PRN PO DECREASED GLUCOSE; Start 03/18/19 at 11:30 Glucose (Glutose) 22.5 gm Q15M PRN PO DECREASED GLUCOSE; Start 03/18/19 at 11:30 Dextrose (D50w Syringe) 25 ml Q15M PRN IV DECREASED GLUCOSE; Start 03/18/19 at 11:30 Dextrose (D50w Syringe) 50 ml Q15M PRN IV DECREASED GLUCOSE; Start 03/18/19 at 11:30 Glucagon (Glucagen) 1 mg Q15M PRN IM DECREASED GLUCOSE; Start 03/18/19 at 11:30 Glucose (Glutose) 15 gm Q15M PRN BUCCAL DECREASED GLUCOSE; Start 03/18/19 at 11:30 Pantoprazole (Protonix Tab) 40 mg DAILY@06 PO Last administered on 03/21/19 06:07; Admin Dose 40 MG; Start 03/18/19 at 16:00 Linagliptin (Tradjenta) 5 mg DAILY PO Last administered on 03/21/19 08:03; Admin Dose 5 MG; Start 03/18/19 at 15:00 Insulin Aspart (Novolog Insulin Pen) 5 unit WITH MEALS SC Last administered on 03/21/19 12:11; Admin Dose 5 UNIT; Start 03/18/19 at 17:35 Vancomycin HCl (Vanco Iv Per Pharmacy) VANCOMYCIN PER PHARMACY PER PROTOCOL XX ; Start 03/18/19 at 15:30 Povidone Iodine (Povidone-Iodine) 1 applic DAILY TOP ; Start 03/19/19 at 09:00 Prochlorperazine (Compazine Inj) 5 mg PACU ORDER PRN IV NAUSEA/VOMITING; Start 03/19/19 at 08:00 Epoetin Ronaldo-epbx (Retacrit (Esrd)) 4,000 unit MoWeFr@1700 SC ; Start 03/21/19 at 17:00 Morphine Sulfate (morphine) 2 mg Q4H PRN IV SEVERE PAIN LEVEL 7-10 Last administered on 03/19/19at 17:55; Admin Dose 2 MG; Start 03/19/19 at 15:00 Acetaminophen/ Hydrocodone Bitart ([place] (5/325)) 1 tab Q6H PRN PO MODERATE PAIN LEVEL 4-6; Start 03/19/19 at 15:00 Insulin Glargine (Lantus) 20 units BID SC Last administered on 03/21/19 08:04; Admin Dose 20 UNITS; Start 03/19/19 at 21:00 Heparin Sodium (Porcine) (Heparin (5000 Units/1ml)) 5,000 unit BID SC Last administered on 03/21/19 08:02; Admin Dose 5,000 UNIT; Start 03/19/19 at 21:00 Insulin Aspart (Novolog Insulin Pen) (Adult SC Insulin - Moder... WITH MEALS BEDTIME SC Last administered on 03/21/19 12:12; Admin Dose 2 UNIT; Start 03/19/19 at 18:05 Cefazolin Sodium 50 ml @ 100 mls/hr Q24H IVPB Last administered on 03/20/19at 21:19; Admin Dose 100 MLS/HR; Start 03/20/19 at 22:00 FLY BELTRAN NP Mar 21, 2019 15:18
[2019-03-21] MEDS ORDERED: EPOETIN ALFA-EPBX (ESRD) 4,000 UNIT/ML VIAL SC SCH (17:00)
[2019-03-21] MEDS: ATORVASTATIN 20 MG TAB PO SCH (20:54)
[2019-03-22] VITALS (7 sets, daily range): BP systolic 130–161; BP diastolic 52–78; PULSE 81–89; RESP 18
[2019-03-22] MEDS: ZOLPIDEM 5 MG TAB PO PRN (01:42)
[2019-03-22] MEDS: CEFAZOLIN 1 GM/50 ML (PMX) 50 ML IVPB SCH (01:42)
[2019-03-22] MEDS: PANTOPRAZOLE (EC) 40 MG TAB PO SCH (05:30)
[2019-03-22] MEDS: Insulin NOVOLOG SS MODERATE Algorithm (SS with meals and bedtime) SC SCH ×3 (08:00→17:15)
[2019-03-22] MEDS: INSULIN ASPART [NOVOLOG] 3 ML PEN SC SCH ×3 (08:08→17:14)
[2019-03-22] MEDS: HEPARIN 5,000 UNIT/1 ML VIAL SC SCH (08:09)
[2019-03-22] MEDS: INSULIN GLARGINE [LANTus] (100 UNITS/ML) SYG SC SCH (08:09)
[2019-03-22] MEDS: MULTIVIT/CA CARB/B CMPLX/FA TAB PO SCH (08:10)
[2019-03-22] MEDS: TIMOLOL 0.5% 5 ML OPH BOTH EYES SCH (08:10)
[2019-03-22] MEDS: LINAGLIPTIN 5 MG TABLET PO SCH (08:10)
[2019-03-22] MEDS: BRIMONIDINE 0.2% 5 ML BTL BOTH EYES SCH (08:10)
[2019-03-22] MEDS: FUROSEMIDE 40 MG TAB PO SCH (08:11)
[2019-03-22] MEDS: AMLODIPINE 5 MG TAB PO SCH (08:11)
[2019-03-22] MEDS: DOCUSATE SODIUM 100 MG CAP PO SCH (08:14)
[2019-03-22] MEDS: COLLAGENASE 5 GM (UD JAR) TOP SCH (08:18)
[2019-03-22] MEDS: POVIDONE IODINE 10% 28.4 GM OINT TOP SCH (08:18)
[2019-03-22] MEDS ORDERED: DAKINS 0.0125%(1/40) 473 ML SOLUTION TP SCH (12:00)
--- NOTE | 2019-03-22 12:19 | CONS ---
Assessment/Plan Assessment/Plan Hospital Course (Demo Recall) All noted, looks comfortable, Tm 99.6 Wound culture grew oxacillin sensitive staph aureus. Antimicrobials: Vancomycin and Ancef Physical examination: Well-developed elderly man who is alert in no distress. Head atraumatic normocephalic. Neck is supple. Chest rise symmetrical. Heart: S1-S2 abdomen soft bowel sounds present Assessment: 1. Status post right foot abscess I&D 2. End-stage renal disease, hemodialysis dependent 3. Diabetes with diabetic neuropathy Plan: Patient remains stable, anticipate dc on abx for 2 more weeks==> IV Vanco can be given at hemodialysis center or oral clindamycin to complete 2 weeks Consultation Date/Type/Reason Admit Date/Time Mar 17, 2019 at 19:35 Initial Consult Date Type of Consult id Date/Time of Note DATE: 03/22/19 TIME: 12:17 Exam/Review of Systems Exam Vitals Vital Signs Date Temp Pulse Resp B/P (MAP) Pulse Ox O2 O2 Flow FiO2 Time Delivery Rate 03/22/19 98.2 81 18 161/70 93 07:55 (100) 03/21/19 Room Air 21:40 03/19/19 2.0 08:58 Intake and Output 03/21/19 03/21/19 03/22/19 1515:00 23:00 07:00 IntakeIntake Total 640 ml 240 ml 50 ml OutputOutput Total 3000 ml BalanceBalance 640 ml 240 ml -2950 ml Results Result Diagram: 03/22/19 0641 03/22/19 0641 Results 24hrs Laboratory Tests Test 03/21/19 17:16 03/21/19 20:49 03/22/19 01:55 03/22/19 06:41 Bedside Glucose 176 193 129 White Blood Count 7.7 Red Blood Count 3.36 L Hemoglobin 10.1 L Hematocrit 30.0 L Mean Corpuscular Volume 89.3 Mean Corpuscular 30.1 Hemoglobin Mean Corpuscular 33.7 Hemoglobin Concent Red Cell Distribution 13.6 Width Platelet Count 141 # Mean Platelet Volume 10.6 H Immature Granulocytes % 3.200 H Neutrophils % 60.8 Lymphocytes % 19.4 Monocytes % 13.2 H Eosinophils % 3.0 Basophils % 0.4 Nucleated Red Blood 0.0 Cells % Immature Granulocytes # 0.250 H Neutrophils # 4.7 Lymphocytes # 1.5 Monocytes # 1.0 H Eosinophils # 0.2 Basophils # 0.0 Nucleated Red Blood 0.0 Cells # Sodium Level 140 Potassium Level 3.6 Chloride Level 102 Carbon Dioxide Level 25 Anion Gap 13 Blood Urea Nitrogen 39 H Creatinine 5.83 H Est Glomerular Filtrat 10 L Rate mL/min Glucose Level 129 Calcium Level 8.7 Phosphorus Level 7.0 H Magnesium Level 2.1 Total Bilirubin 0.2 Direct Bilirubin 0.00 Indirect Bilirubin 0.2 Aspartate Amino 40 Transf (AST/SGOT) Alanine 22 Aminotransferase (ALT/SG PT) Alkaline Phosphatase 94 Total Protein 7.9 Albumin 3.8 Globulin 4.10 H Albumin/Globulin Ratio 0.92 Test 03/22/19 08:06 03/22/19 12:07 Bedside Glucose 112 143 Medications Medication Current Medications Diagnostic Test (Pha) (Accu-Chek) 1 XX ; Start 03/18/19 at 02:00; Status Hold Acetaminophen (Tylenol Tab) 650 mg Q6H PRN PO MILD PAIN(1-3)OR ELEVATED TEMP Last administered on 03/22/19 03:05; Admin Dose 650 MG; Start 03/18/19 at 00:30 Zolpidem Tartrate (Ambien) 5 mg HS PRN PO INSOMNIA Last administered on 03/22/19 01:42; Admin Dose 5 MG; Start 03/18/19 at 00:30 Timolol Maleate (Timoptic 0.5%) 1 drop BID BOTH EYES Last administered on 03/22/19 08:10; Admin Dose 1 DROP; Start 03/18/19 at 09:00 Amlodipine Besylate (Norvasc) 5 mg DAILY PO Last administered on 03/22/19 08:11; Admin Dose 5 MG; Start 03/18/19 at 09:00 Atorvastatin Calcium (Lipitor) 20 mg QHS PO Last administered on 03/21/19 20:54; Admin Dose 20 MG; Start 03/18/19 at 21:00 Docusate Sodium (Colace) 200 mg DAILY PO Last administered on 03/22/19 08:14; Admin Dose 200 MG; Start 03/18/19 at 09:00 Furosemide (Lasix) 40 mg DAILY PO Last administered on 03/22/19 08:11; Admin Dose 40 MG; Start 03/18/19 at 09:00 Multivit/Ca Carb/ B Cmplx/FA/Prenat ([place]) 1 tab DAILY PO Last administered on 03/22/19at 08:10; Admin Dose 1 TAB; Start 03/18/19 at 09:00 Brimonidine Tartrate ([place]phagan 0.2%) 1 drop BID BOTH EYES Last administered on 03/22/19at 08:10; Admin Dose 1 DROP; Start 03/19/19 at 21:00 Collagenase (Santyl) 1 applic DAILY TOP Last administered on 03/18/19at 17:30; Admin Dose 1 APPLIC; Start 03/18/19 at 11:30 Miscellaneous Information 1 ea NOTE XX ; Start 03/18/19 at 11:30 Glucose (Glutose) 15 gm Q15M PRN PO DECREASED GLUCOSE; Start 03/18/19 at 11:30 Glucose (Glutose) 22.5 gm Q15M PRN PO DECREASED GLUCOSE; Start 03/18/19 at 11:30 Dextrose (D50w Syringe) 25 ml Q15M PRN IV DECREASED GLUCOSE; Start 03/18/19 at 11:30 Dextrose (D50w Syringe) 50 ml Q15M PRN IV DECREASED GLUCOSE; Start 03/18/19 at 11:30 Glucagon (Glucagen) 1 mg Q15M PRN IM DECREASED GLUCOSE; Start 03/18/19 at 11:30 Glucose (Glutose) 15 gm Q15M PRN BUCCAL DECREASED GLUCOSE; Start 03/18/19 at 11:30 Pantoprazole (Protonix Tab) 40 mg DAILY@06 PO Last administered on 03/22/19at 05:30; Admin Dose 40 MG; Start 03/18/19 at 16:00 Linagliptin (Tradjenta) 5 mg DAILY PO Last administered on 03/22/19at 08:10; Admin Dose 5 MG; Start 03/18/19 at 15:00 Insulin Aspart (Novolog Insulin Pen) 5 unit WITH MEALS SC Last administered on 03/22/19at 12:09; Admin Dose 5 UNIT; Start 03/18/19 at 17:35 Vancomycin HCl (Vanco Iv Per Pharmacy) VANCOMYCIN PER PHARMACY PER PROTOCOL XX ; Start 03/18/19 at 15:30 Povidone Iodine (Povidone-Iodine) 1 applic DAILY TOP ; Start 03/19/19 at 09:00 Prochlorperazine (Compazine Inj) 5 mg PACU ORDER PRN IV NAUSEA/VOMITING; Start 03/19/19 at 08:00 Epoetin Roanldo-epbx (Retacrit (Esrd)) 4,000 unit MoWeFr@1700 SC Last administered on 03/21/19 16:41; Admin Dose 4,000 UNIT; Start 03/21/19 at 17:00 Morphine Sulfate (morphine) 2 mg Q4H PRN IV SEVERE PAIN LEVEL 7-10 Last administered on 03/19/19 17:55; Admin Dose 2 MG; Start 03/19/19 at 15:00 Acetaminophen/ Hydrocodone Bitart ([place] (5/325)) 1 tab Q6H PRN PO MODERATE PAIN LEVEL 4-6; Start 03/19/19 at 15:00 Insulin Glargine (Lantus) 20 units BID SC Last administered on 03/22/19 08:09; Admin Dose 20 UNITS; Start 03/19/19 at 21:00 Heparin Sodium (Porcine) (Heparin (5000 Units/1ml)) 5,000 unit BID SC Last administered on 03/22/19 08:09; Admin Dose 5,000 UNIT; Start 03/19/19 at 21:00 Insulin Aspart (Novolog Insulin Pen) (Adult SC Insulin - Moder... WITH MEALS BEDTIME SC Last administered on 03/22/19 12:10; Admin Dose 2 UNIT; Start 03/19/19 at 18:05 Cefazolin Sodium 50 ml @ 100 mls/hr Q24H IVPB Last administered on 03/22/19 01:42; Admin Dose 100 MLS/HR; Start 03/20/19 at 22:00 Miscellaneous Information (*Rx Drug Level Order Reminder*) RANDOM VANCOMYCIN LEVEL ... 0500 ONCE XX ; Start 03/23/19 at 05:00; Stop 03/23/19 at 05:01 Sodium Hypochlorite ([place] Diluted ()) 1 applic DAILY TP Last administered on 03/22/19 12:11; Admin Dose 1 APPLIC; Start 03/22/19 at 12:00 FLY BELTRAN NP Mar 22, 2019 12:19
--- NOTE | 2019-03-22 14:32 | QN ---
Documentation Comment Pt feels better cleared by Id and podiatry will dc home iv vanco with hd center DEONNA TILLMAN MD Mar 22, 2019 14:32
--- NOTE | 2019-03-22 14:33 | PDOCDIS ---
Discharge Instructions DIAGNOSIS Discharge Diagnosis rt foot abscess s/p I AND D CONDITION [id number] Patient Condition: [id number] Fair HOME CARE INSTRUCTIONS: [id number] Special Diet: [id number] diabetic renal diet ACTIVITY: [id number] Activity Restrictions: [id number] Slowly Increase Activity Rest between Activity FOLLOW UP/APPOINTMENTS Follow-up Plan fu PCP in 1-[address] Hickman in1-2 weeks home health care DEONNA TILLMAN MD Mar 22, 2019 14:33
--- NOTE | 2019-03-22 21:34 | DS ---
DATE OF ADMISSION: 03/17/2019 DATE OF DISCHARGE: 03/22/2019 HISTORY OF PRESENT ILLNESS AND HOSPITAL COURSE: This is a 59-year-old male with history of hypertens ion, obesity, diabetes, history of end-stage renal disease on hemodialysis, sent from [facility] f or evaluation of right foot edema. The patient indicated that roughly 1 week developed redness and a n ulcer on the right foot. He was seen by vascular surgeon, Dr. Fisher, and was sent into the ER for further evaluation. On admission, the vital signs were stable. The white count was 9.5, hemoglobin 10.6, platelet count 259. The patient was continued on hemodialysis. During the hospitalization cou [facility], the patient was seen by Dr. Fisher who recommended calling podiatry. Dr. Ha was called. Th e patient had an I and D of the right foot. The patient had a right foot abscess. Cultures were sen t and cultures were positive for Staphylococcus aureus. The patient was continued on vancomycin, on Ancef. The patient was continued on hemodialysis. The patient had strict blood glucose control. e patient's condition was stabilizing every day. The patient was afebrile. White count came down to 7.7. The patient also had an arterial study, which was negative for stenosis. Had a foot MRI which was negative for osteo. Currently, the patient is stable to be discharged home per ID. The patient will continue with IV vancomycin at dialysis center for 2 weeks. FINAL DISCHARGE DIAGNOSES: 1. Status post abscess of right foot, I and D abscess. 2. Positive culture for staph. 3. Right foot cellulitis. 4. Diabetes with peripheral neuropathy. 5. 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 6. End-stage renal disease on hemodialysis. 7. Anemia of chronic disease. 8. Status post abdominal laparotomy. 9. History of bilateral lenses. 10. Left arm fistula. DISCHARGE CONDITION: Stable. DISCHARGE DIET: Renal, diabetic diet. DISCHARGE MEDICATIONS: Continue with home medications which were: 1. Amlodipine 10. 2. Atorvastatin 20. 3. Colace 200. 4. Iron. 5. Lasix 40. 6. Sliding scale minoxidil 10%. 7. Multivitamin. 8. Prilosec. 9. Januvia 50. 10. Lantus 20 b.i.d. 11. [place] 1 tab p.o. q.6h. p.r.n. pain. 12. Colace p.r.n. constipation. An order was faxed in for IV vancomycin to be sent at the dialysis center for 2 weeks, and home healt h arrangement was made for wound care. Patient will follow up with PCP in 1 to 2 weeks following hem odialysis Thursday, Thursday, Thursday. Also, will follow with Dr. Ha next week. Dictated By: DEONNA MORENO/NIMA Conf#: [id number] DID#: [id number] CC: KATH SILVA MD;*EndCC*
== END 2019-03-22 19:00 | disposition home health service (06) | DRG 264 ==
LOC: E/R 16:01 → PP2 19:35
PROVIDERS: ADMIT Internal Medicine Nephrology; ATTEND Internal Medicine Nephrology
PROC: 5A1D70Z Performance of Urinary Filtration, Intermittent, Less than 6 Hours Per Day (ICD-10-PCS; 2019-03-18)
PROC: 0JBQ0ZZ Excision of Right Foot Subcutaneous Tissue and Fascia, Open Approach (ICD-10-PCS; 2019-03-19)
PROC: 0Y9M0ZX Drainage of Right Foot, Open Approach, Diagnostic (ICD-10-PCS; principal; 2019-03-19 09:00)
DX: E11.52 Type 2 diabetes mellitus with diabetic peripheral angiopathy with gangrene (principal); N18.6 End stage renal disease; L03.115 Cellulitis of right lower limb; I12.0 Hypertensive chronic kidney disease with stage 5 chronic kidney disease or end stage renal disease; N39.0 Urinary tract infection, site not specified; E11.8 Type 2 diabetes mellitus with unspecified complications; I73.9 Peripheral vascular disease, unspecified; E11.40 Type 2 diabetes mellitus with diabetic neuropathy, unspecified; E11.22 Type 2 diabetes mellitus with diabetic chronic kidney disease; E11.621 Type 2 diabetes mellitus with foot ulcer; E87.5 Hyperkalemia; E66.9 Obesity, unspecified; Z68.34 Body mass index [BMI] 34.0-34.9, adult; Z99.2 Dependence on renal dialysis; D63.8 Anemia in other chronic diseases classified elsewhere; E78.5 Hyperlipidemia, unspecified
CPT/HCPCS: 73630; 73718; 80048; 80053; 80202; 81001; 82652; 82962; 83036; 83540; 83735; 84100; 84560; 85025; 85610; 85730; 87070; 87086; 87340; 90935; 93005; 93926; 96374; 96375; J0690; J0696; J1644; J1650; J1815; J2250; J2270; J2405; J2543; J2916; J3010; J3370; Q5105